=== PATIENT | female | born 1965 | race Caucasian/White ===

== ENCOUNTER 2017-05-24 10:15 | Emergency (ER) | payer OTHER, SELFPAY ==
[2017-05-24 10:16] VITALS: BP 126/75; PULSE 73; RESP 18; TEMP 36.9; O2SAT 97; BMI 28.7
--- NOTE | 2017-05-24 10:41 | RAD_ITS ---
STUDY: X-RAY CHEST REASON FOR EXAM: Female, 51 years old. Cough and chest congestion. TECHNIQUE: PA and lateral views of the chest. COMPARISON: None. FINDINGS: Focal lingular infiltrate. Hyperinflation. There is no demonstrated pleural abnormality. Normal size heart. Normal mediastinum and refugio. Normal visualized pulmonary arteries. Normal visualized aortic arch and descending thoracic aorta. There is demineralization of the osseous structures. Normal visualized ribs, clavicles, and shoulders. The patient is status post cholecystectomy. RAD/Chest PA and Lateral IMPRESSION: Focal lingular infiltrate. Electronically Signed: Okmar Chowdary MD at 11:08 EST Tel [phone], Service support ,
--- NOTE | 2017-05-24 11:13 | ED.VISSUMM ---
- ER Visit Summary Date of Service: 05/24/17 Chief Complaint: Respiratory symptoms that started 2-3 weeks ago History of Present Illness: The patient is a 51 F smoker 1 pack per day for 20+ years presents with productive cough of green colored sputum associated with nasal congestion and subjective fever with upper extremity achiness for 1 week. Patient initially complained of nasal congestion, rhinorrhea and postnasal drainage 2-3 weeks ago with a nonproductive cough. He denies rash. She denies headache, visual, ocular or auditory symptoms. She does complain of nausea without vomiting diarrhea. She denies dysuria, frequency, urgency hematuria. Please read written note for complete detail. Physical Examination: Are unremarkable. She is not febrile or hypoxic. Head is atraumatic normocephalic. Pupils are equal round reactive. Extraocular muscles are intact. TMs are pearly white with landmarks noted. Nares patent with no drainage. Posterior pharynx without erythema or exudate. Uvula is midline. There is no dysphonia or dysphasia. Trachea is midline. There is no stridor with auscultation of the neck. Heart is regular without murmur, gallop or rub. S1 and S2 are normal. Lungs are clear to auscultation with good movement of air bilaterally. There is no asymmetry, swelling, discoloration, leg vein distention, palpable cords or tenderness along the distribution of the deep venous system. Neuro exam is nonfocal Test Results: Two-view chest x-ray reveals a lingular infiltrate. Since patient does not have any sirs criteria blood work was not obtained. Emergency Department Course and Treatment: Chest x-ray is obtained. No blood work was obtained since she does not have any service criteria. Treatment Plan: She is not allergic to any antibiotics she was placed on doxycycline 100 mg twice daily. This will cover both typical and atypical organisms and not associated with tendon problems especially since she is middle-aged and heavy set with a BMI of 28.7. Disposition: Discharge to home with prescription for doxycycline 100 mg twice daily ?14 days. Impression: Newly acquired pneumonia, lingula, initial encounter This note was generated with [employer] dictation software. It may contain incorrect words, spelling, and punctuation that were not noted in review of the chart prior to signing ED Disposition - Plan for ED Patient: Disposition: Home or Assisted Living Chief Complaint: Cough Instructions: ED Pneumonia Adult Prescriptions: Doxycycline [Vibramycin] 100 mg PO BID #14 cap Referrals: Care Physician,No Primary [Primary Care Provider] - Maryann Lee DO [STAFF PHYSICIAN] - 3-5 Days Additional Instructions: It is in your best interest to stop smoking. Your prescription was electronically transmitted to [facility] the pharmacy you designated as your pharmacy of choice.
[2017-05-24] MEDS: Doxycycline 100 MG CAPSULE PO (11:33)
[2017-05-24 11:35] VITALS: BP 133/87; PULSE 65; RESP 16; O2SAT 97
== END 2017-05-24 11:38 | disposition home or self-care (01) ==
PROVIDERS: Emergency Provider Emergency Medicine
DX: J18.9 Pneumonia, unspecified organism (principal); Z72.0 Tobacco use
CPT/HCPCS: 71046; 99283

== ENCOUNTER 2017-06-05 06:50 | Emergency (ER) | payer OTHER, SELFPAY ==
[2017-06-05 06:50] VITALS: BP 128/78; PULSE 72; RESP 16; TEMP 36.8; O2SAT 99; BMI 29.3
[2017-06-05 06:58] VITALS: O2SAT 97
--- NOTE | 2017-06-05 07:05 | EKG12_ITS ---
Test Reason : COUGH Blood Pressure : / mmHG Vent. Rate : 061 BPM Atrial Rate : 061 BPM P-R Int : 152 ms QRS Dur : 086 ms QT Int : 430 ms P-R-T Axes : 063 050 045 degrees QTc Int : 432 ms Normal sinus rhythm Normal ECG Confirmed by VIRGIE CRUMP, ANNALISA ([id number]), deputy editor in chief ELVER GLASS ([id number]) on 06/07/2017 1:11:41 PM Referred By: ALEXA Confirmed By:ANNALISA GARVIN MD
--- NOTE | 2017-06-05 07:05 | RAD_ITS ---
STUDY: X-RAY CHEST REASON FOR EXAM: Female, 51 years old. Cough. Recent antibiotic treatment for pneumonia. TECHNIQUE: PA and lateral views of the chest. COMPARISON: Comparison is made with prior study dated May 24, 2018. FINDINGS: Hyperinflation. The previously seen lingular infiltrate has improved. Residual changes persist. There is no demonstrated pleural abnormality. Normal size heart. Normal mediastinum and refugio. Normal visualized pulmonary arteries. Normal visualized aortic arch and descending thoracic aorta. There is demineralization of the osseous structures. Normal visualized ribs, clavicles, and shoulders. Surgical clips are seen in the right upper quadrant most likely secondary to prior cholecystectomy. RAD/Chest PA and Lateral IMPRESSION: Mild residual lingular infiltrate. Electronically Signed: Omkar Chowdary MD at 9:00 EST Tel [phone], Service support ,
--- NOTE | 2017-06-05 07:16 | ED.VISSUMM ---
- ER Visit Summary Date of Service: 06/05/17 Chief Complaint: Cough History of Present Illness: The patient is a 51 F with a cough for the past 2 weeks. She was seen in the ER on May 24 and diagnosed with pneumonia. She was treated with doxycycline and has completed her antibiotics. Patient states she still has cough. She complains of having no energy. She reports feeling warm and having chills, but has not measured her fever. She states her cough is dry. She does occasionally feel that she is wheezing. She is a smoker. Physical Examination: Vital signs are unremarkable. Head and neck examination is unremarkable. Heart is regular rate and rhythm. Lung sounds are clear with good air movement. I do not appreciate any wheezing. Abdomen is soft nontender. Extremity examination is unremarkable with strong distal pulses. Test Results: CBC and chemistry studies are unremarkable. EKG is sinus at 61 with no sign of acute ischemia. Two-view chest x-ray reveals mild residual lingular infiltrate. Emergency Department Course and Treatment: Patient received Tessalon Perles and Tylenol here. Test results were discussed with her. Because she is still having subjective fevers and chills, she will be treated with Levaquin. First dose will be given here and she will be referred to establish local primary care. Treatment Plan: [] Disposition: Discharge Impression: Lingular pneumonia This note was generated with [employer] dictation software. It may contain incorrect words, spelling, and punctuation that were not noted in review of the chart prior to signing ED Disposition - Plan for ED Patient: Chief Complaint: Cough Referrals: Care Physician,No Primary [Primary Care Provider] -
[2017-06-05] MEDS: Benzonatate 100 MG Capsule 200 MG PO (08:16)
[2017-06-05 09:31] LABS: Absolute Lymphocyte Count 2.27 X10^3/ul (0.83-4.51); Absolute Neutrophil Count 3.8 X10^3/uL (2.0-7.7); Basophil# 0.02 X10^3/uL; Basophil% 0.3 % (0-1); Eosinophil# 0.21 X10^3/uL; Hematocrit 41.7 % (37-47); Lymphocyte # 2.27 X10^3/ul (4.0); Lymphocyte % 32.8 % (19-41); Mean Corp Hgb Conc 33.6 g/gl (32-36); Mean Corpuscular Hgb 29.4 pg (27.0-32.0); Mean Corpuscular Volume 87.6 fL (81-99); Mean Platelet Vol. 10.4 fl (6.2-12.0); Monocyte# 0.65 X10^3/uL; Monocyte% 9.4 % (0-10); Neutrophil # 3.76 X10^3/uL (2.7-7.7); Neutrophil % 54.4 % (47-70); Platelet Count 221 K/mm3 (150-450); RBC Distribution Width CV 13.5 % (11.6-14.6); RBC Distribution Width SD 43.1 fl (35.1-43.9); Red Blood Count 4.76 M/mm3 (4.2-5.4); White Blood Count 6.9 K/mm3 (4.4-11.0)
[2017-06-05 09:34] LABS: POSITIVE COUNT NO; POSITIVE DIFFERENTIAL NO; POSITIVE MORPHOLOGY NO
[2017-06-05 09:51] LABS: Anion Gap 9 (5-15); BUN 17 mg/dL (7-18); BUN/Creat Ratio 18.1 RATIO (10-20); Calcium,Total 8.7 mg/dL (8.5-10.1); Chloride 108 mmol/L (98-107); Creatinine, Serum 0.94 mg/dL (0.55-1.02); EST Glomerular Filtration Rate 66 mL/min (>60); Est Glom Filt Rate - Afr Amer 80 mL/min (>60); Estimated Creatinine Clearance 52.23 ml/min; Glucose 88 mg/dL (74-106); Potassium 3.5 mmol/L (3.5-5.1); Sodium Level 140 mmol/L (136-145)
--- NOTE | 2017-06-05 09:58 | ED.DEP ---
ED Disposition - Plan for ED Patient: Disposition: Home or Assisted Living Chief Complaint: Cough Instructions: ED Pneumonia Adult Prescriptions: Benzonatate [Tessalon Perle] 200 mg PO TID PRN PRN #20 capsule PRN Reason: Cough Levofloxacin [Levaquin] 750 mg PO DAILY #4 tablet Referrals: Laure Mathews MD [STAFF PHYSICIAN] - 1-2 Weeks
[2017-06-05 10:00] VITALS: BP 138/74; PULSE 71; RESP 16; O2SAT 96
[2017-06-05] MEDS: levoFLOXacin 750 MG Tablet PO (10:04)
[2017-06-05] MEDS: Acetaminophen 500 MG Tablet 1000 MG PO (10:04)
[2017-06-05 10:08] VITALS: BP 138/77; PULSE 61; RESP 15; O2SAT 96
== END 2017-06-05 10:08 | disposition home or self-care (01) ==
PROVIDERS: Emergency Provider Emergency Medicine
DX: J18.9 Pneumonia, unspecified organism (principal); F17.200 Nicotine dependence, unspecified, uncomplicated; Z79.2 Long term (current) use of antibiotics
CPT/HCPCS: 36415; 71046; 80048; 85025; 93005; 99285; A4216

== ENCOUNTER 2017-10-05 23:16 | Emergency (ER) | payer SELFPAY ==
--- NOTE | 2017-10-05 23:16 | EKG12_ITS ---
Test Reason : CP/LOW BP Blood Pressure : / mmHG Vent. Rate : 067 BPM Atrial Rate : 067 BPM P-R Int : 160 ms QRS Dur : 090 ms QT Int : 456 ms P-R-T Axes : 080 068 005 degrees QTc Int : 481 ms Normal sinus rhythm Prolonged QT Abnormal ECG Confirmed by CAMERON CRUMP, SETH ([id number]), editor publications JUAN KOENIG ([id number]) on 10/08/2017 10:15:45 AM Referred By: DR REEVES Confirmed By:SETH BARNES MD
[2017-10-05 23:17] VITALS: BP 68/32; PULSE 56; RESP 15; TEMP 36.4; BMI 26.6
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
[2017-10-06 00:05] VITALS: BP 91/57; PULSE 81; RESP 16; O2SAT 98
[2017-10-06 00:16] LABS: Partial Thromboplast Time 23.6 Seconds (24.1-36.2)
[2017-10-06] MEDS: 0.9% Normal Saline 1,000 ML 1000 ML IV (00:19)
[2017-10-06] MEDS: fentaNYL 100 MCG/2 ML Ampul 50 MCG IV (00:19)
[2017-10-06 00:20] VITALS: BP 99/56
[2017-10-06 00:22] LABS: AST(SGOT) 17 U/L (15-37); Alanine Aminotransfer ALT/SGPT 19 U/L (13-56); Albumin, Serum 3.6 g/dL (3.2-5.0); Alkaline Phosphatase 50 U/L (45-117); Anion Gap 7 (5-15); BUN 16 mg/dL (7-18); BUN/Creat Ratio 17.2 RATIO (10-20); Bilirubin, Direct 0.11 mg/dL (0.00-0.30); Calcium,Total 8.7 mg/dL (8.5-10.1); Chloride 109 mmol/L (98-107); Creatinine, Serum 0.93 mg/dL (0.55-1.02); EST Glomerular Filtration Rate 67 mL/min (>60); Est Glom Filt Rate - Afr Amer 81 mL/min (>60); Estimated Creatinine Clearance 62.95 ml/min; Glucose 157 mg/dL (74-106); Lipase 154 U/L (73-393); Potassium 3.4 mmol/L (3.5-5.1); Protein, Total 6.6 g/dL (6.4-8.2); Sodium Level 140 mmol/L (136-145)
[2017-10-06 00:24] LABS: Absolute Lymphocyte Count 2.04 X10^3/ul (0.83-4.51); Absolute Neutrophil Count 5.2 X10^3/uL (2.0-7.7); Basophil# 0.02 X10^3/uL; Basophil% 0.2 % (0-1); Eosinophil# 0.11 X10^3/uL; Eosinophils% 1.4 % (0-5); Hematocrit 38.9 % (37-47); Hemoglobin 13.4 g/dl (12.0-15.0); Lymphocyte # 2.04 X10^3/ul (4.0); Lymphocyte % 25.4 % (19-41); Mean Corp Hgb Conc 34.4 g/gl (32-36); Mean Corpuscular Hgb 30.4 pg (27.0-32.0); Mean Corpuscular Volume 88.2 fL (81-99); Mean Platelet Vol. 10.8 fl (6.2-12.0); Monocyte# 0.66 X10^3/uL; Monocyte% 8.2 % (0-10); Neutrophil # 5.19 X10^3/uL (2.7-7.7); Neutrophil % 64.7 % (47-70); POSITIVE COUNT NO; POSITIVE DIFFERENTIAL NO; POSITIVE MORPHOLOGY NO; Platelet Count 206 K/mm3 (150-450); RBC Distribution Width CV 13.6 % (11.6-14.6); RBC Distribution Width SD 43.2 fl (35.1-43.9); Red Blood Count 4.41 M/mm3 (4.2-5.4)
[2017-10-06 00:25] VITALS: BP 101/76
[2017-10-06 00:32] VITALS: BP 104/73; PULSE 73; RESP 19; O2SAT 97
--- NOTE | 2017-10-06 00:52 | NURSING ---
pt was in triage and the nurse had 2 low BPS and stated that she looked pale and diaphoretic. pt was immediately brought back and escorted back by 2 nurses. the pt was put on the monitor and had BP recycled. the pt still had low BP's. Dr. Martinez concerned with internal bleeding. Difficult IV start, finally a 20 g was established, with fluid bolus running. and got the pt stable to head quickly to cat scan. DR. Martinez came over to see the cat scan as well. there was a spleen injury and [facility] was called. inserted catheter, got urine but another staff member accidently threw away the pee and the pt had already left for the helipad. a c-collar was also applied.
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
[2017-10-06 00:55] VITALS: O2SAT 99
[2017-10-06 00:56] VITALS: BP 104/73; PULSE 83; RESP 16; O2SAT 97
== END 2017-10-06 01:16 | disposition short-term general hospital (02) ==
LOC: ED 10-06 00:22
PROVIDERS: Emergency Provider Emergency Medicine
DX: I95.9 Hypotension, unspecified (principal); S36.00XA Unspecified injury of spleen, initial encounter; F17.200 Nicotine dependence, unspecified, uncomplicated; V00.831A Fall from motorized mobility scooter, initial encounter; Y93.I9 Activity, other involving external motion; Y92.89 Other specified places as the place of occurrence of the external cause; Y99.8 Other external cause status
CPT/HCPCS: 51702; 71260; 74177; 80048; 80076; 83605; 83690; 85025; 85610; 85730; 93005; 96374; 99285; J7030; Q9967; A4216

== ENCOUNTER 2017-10-07 19:46 | Emergency (ER) | payer SELFPAY ==
[2017-10-07 19:48] VITALS: BP 144/88; PULSE 64; RESP 20; TEMP 36.7; O2SAT 98; BMI 26.4
--- NOTE | 2017-10-07 20:27 | EKG12_ITS ---
Test Reason : CP,SOB Blood Pressure : / mmHG Vent. Rate : 061 BPM Atrial Rate : 061 BPM P-R Int : 148 ms QRS Dur : 086 ms QT Int : 424 ms P-R-T Axes : 070 061 062 degrees QTc Int : 426 ms Normal sinus rhythm with sinus arrhythmia Normal ECG Confirmed by CAMERON CRUMP, SETH ([id number]), communications editor JUAN KOENIG ([id number]) on 10/10/2017 4:21:57 PM Referred By: TYLER Confirmed By:SETH BARNES MD
[2017-10-07] MEDS: Ipratropium/Albuterol Sulfate 3 ML AMPUL.NEB INHALATION (20:42)
[2017-10-07] MEDS: Albuterol 2.5 MG/3 ML VIAL.NEB. INHALATION ×2 (20:42)
[2017-10-07 20:43] VITALS: PULSE 59; RESP 20
[2017-10-07] MEDS: HYDROcodone Bitartrate/Apap 5/325 Tablet PO (20:47)
[2017-10-07 20:48] LABS: Absolute Neutrophil Count 4.3 X10^3/uL (2.0-7.7); Basophil# 0.02 X10^3/uL; Basophil% 0.3 % (0-1); Eosinophil# 0.17 X10^3/uL; Eosinophils% 2.3 % (0-5); Hematocrit 41.4 % (37-47); Hemoglobin 14.1 g/dl (12.0-15.0); Lymphocyte % 28.5 % (19-41); Mean Corp Hgb Conc 34.1 g/gl (32-36); Mean Corpuscular Hgb 30.2 pg (27.0-32.0); Mean Corpuscular Volume 88.7 fL (81-99); Monocyte# 0.83 X10^3/uL; Monocyte% 11.2 % (0-10); Neutrophil # 4.25 X10^3/uL (2.7-7.7); Neutrophil % 57.6 % (47-70); POSITIVE COUNT NO; POSITIVE DIFFERENTIAL NO; POSITIVE MORPHOLOGY NO; Platelet Count 223 K/mm3 (150-450); RBC Distribution Width CV 14.3 % (11.6-14.6); RBC Distribution Width SD 45.5 fl (35.1-43.9); Red Blood Count 4.67 M/mm3 (4.2-5.4); White Blood Count 7.4 K/mm3 (4.4-11.0)
[2017-10-07 20:53] VITALS: BP 106/74; PULSE 72; RESP 22; O2SAT 97
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
[2017-10-07 21:00] VITALS: PULSE 77; RESP 16
[2017-10-07 21:00] LABS: AST(SGOT) 20 U/L (15-37); Alanine Aminotransfer ALT/SGPT 17 U/L (13-56); Albumin, Serum 3.6 g/dL (3.2-5.0); Alkaline Phosphatase 55 U/L (45-117); Anion Gap 6 (5-15); BUN 16 mg/dL (7-18); BUN/Creat Ratio 17.3 RATIO (10-20); Calcium,Total 8.8 mg/dL (8.5-10.1); Chloride 110 mmol/L (98-107); Creatinine, Serum 0.92 mg/dL (0.55-1.02); EST Glomerular Filtration Rate 67 mL/min (>60); Est Glom Filt Rate - Afr Amer 82 mL/min (>60); Estimated Creatinine Clearance 53.36 ml/min; Globulin 3.5 g/dL (2.2-4.2); Glucose 108 mg/dL (74-106); Potassium 4.1 mmol/L (3.5-5.1); Protein, Total 7.1 g/dL (6.4-8.2); Sodium Level 142 mmol/L (136-145)
[2017-10-07 21:56] VITALS: BP 123/63; PULSE 83; RESP 25; O2SAT 94
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
[2017-10-07 22:50] VITALS: BP 113/43; PULSE 81; RESP 24; O2SAT 97
--- NOTE | 2017-10-07 22:50 | ED.RN ---
THIS NURSE REVIEWED D/C INSTRUCTIONS WITH PT. PT VERBALIZED UNDERSTANDING OF INSTRUCTIONS. IV D/C. IV CATHETER INTACT. PT TOLERATED WELL. PT DENIES FURTHER NEEDS OR QUESTIONS AT THIS TIME. PT AMBULATES FROM ROOM ON OWN WITHOUT ASSISTANCE FROM STAFF
== END 2017-10-07 22:53 | disposition home or self-care (01) ==
PROVIDERS: Emergency Provider Emergency Medicine
DX: R07.89 Other chest pain (principal); J44.9 Chronic obstructive pulmonary disease, unspecified; F17.200 Nicotine dependence, unspecified, uncomplicated
CPT/HCPCS: 71046; 80053; 85025; 93005; 94640; 99285; A4216

== ENCOUNTER 2017-10-08 06:19 | Emergency (ER) | payer SELFPAY ==
[2017-10-08 06:20] VITALS: BP 132/80; PULSE 63; RESP 22; TEMP 36.4; O2SAT 97; BMI 32.6
--- NOTE | 2017-10-08 06:44 | RAD_ITS ---
STUDY: X-RAY CHEST REASON FOR EXAM: Female, 51 years old. Shortness of breath. TECHNIQUE: PA and lateral views of the chest. COMPARISON: Comparison is made with prior study dated October 07, 2017. FINDINGS: The lungs are clear and expanded. There is no demonstrated pleural abnormality. Normal size heart. Normal mediastinum and refugio. Normal visualized pulmonary arteries. Normal visualized aortic arch and descending thoracic aorta. There is demineralization of the osseous structures. Normal visualized ribs, clavicles, and shoulders. Surgical clips are seen in the right upper quadrant ache with prior cholecystectomy. RAD/Chest PA and Lateral IMPRESSION: No acute abnormality is seen. Electronically Signed: Omkar Chowdary MD at 8:38 EDT Tel [phone], Service support ,
[2017-10-08] MEDS: Albuterol 2.5 MG/3 ML VIAL.NEB. INHALATION ×3 (07:16)
[2017-10-08] MEDS: Ipratropium/Albuterol Sulfate 3 ML AMPUL.NEB INHALATION (07:16)
[2017-10-08 07:17] VITALS: PULSE 70; RESP 20
[2017-10-08 07:25] VITALS: PULSE 68; RESP 18; O2SAT 98
[2017-10-08] MEDS: morphine 8 MG/ML Syringe 6 MG SC (07:26)
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
--- NOTE | 2017-10-08 07:32 | ED.DEP ---
ED Disposition - Plan for ED Patient: Chief Complaint: Shortness of Breath Instructions: ED Contusion Chest Wall, ED Wheezing Prescriptions: Albuterol IH (ProAir) [Proair Hfa] 1 - 2 puff INHALATION Q4H PRN PRN #1 inhaler PRN Reason: Wheezing Referrals: Newton Gallagher [[facility]] - 3-5 Days
[2017-10-08 09:58] VITALS: BP 117/70; PULSE 76; RESP 16; TEMP 36.6; O2SAT 97
--- NOTE | 2017-10-09 12:00 | CM.ED ---
ED CALLBACK: Follow-up call placed to patient. No answer. Voicemail left with return contact information.
== END 2017-10-08 10:00 | disposition home or self-care (01) ==
PROVIDERS: Emergency Provider Emergency Medicine
DX: J98.01 Acute bronchospasm (principal); R07.89 Other chest pain; F17.200 Nicotine dependence, unspecified, uncomplicated
CPT/HCPCS: 71046; 94640; 96372; 99282

== ENCOUNTER 2018-01-08 19:58 | Emergency (ER) | payer SELFPAY ==
[2018-01-08 19:59] VITALS: BP 126/73; PULSE 66; RESP 18; TEMP 36.9; O2SAT 99; BMI 26.0
--- NOTE | 2018-01-08 21:49 | ED.DCSUM_ITS ---
- ER Visit Summary Date of Service: 01/08/18 Chief Complaint: Cold symptoms History of Present Illness: The patient is a 52 F who presents for almost 2 weeks of cold symptoms. Patient had sinus congestion and rhinorrhea at onset and now continues to have a cough and associated shortness of breath. Cough is dry and frequent. She is feeling fatigued and weak. She has pain between her shoulder blades that is tender with movement that she thinks is from coughing. She denies nausea, vomiting, diarrhea, fever, sore throat or chest pain. She is a smoker. Denies history of COPD. Denies any medical problems. Physical Examination: Vital signs: afebrile, hemodynamically stable, no hypoxia on room air General: well nourished, well developed, in no distress Skin: warm, dry, no rash, no pallor HEENT: normocephalic and atraumatic; PERRL, EOMI, moist mucous membranes no oropharyngeal lesions or exudates, no posterior erythema, voice is nasal and consistent with congestion Cardiovascular: regular rate and rhythm without murmurs, no peripheral edema, 2+ pulses all distal extremities Respiratory: No increased work of breathing, lungs show mild wheezing consistent with smoker's lung, frequent hacking cough Abdominal: Abdomen is soft, nontender with normoactive bowel sounds, no guarding or rebound, no masses MSK: Moves all extremities, no deformities, normal strength, tenderness to the musculature of the upper shoulders Neuro: Awake and alert, oriented ?4. No facial droop, sensation and motor function intact and symmetric Test Results: Clinical Impression(s) from Imaging Studies Chest X-Ray 01/08/18 22:10 IMPRESSION: Degenerative changes, as described above. No demonstrated acute cardiopulmonary process. Electronically Signed: Angel Stone MD at 22:38 EDT , Service support , Medications Given Discontinued Medications Albuterol/Ipratropium (Duoneb) 3 ml INHALATION X1 ONE Stop: 01/08/18 21:46 Last Admin: 01/08/18 21:54 Dose: 3 ml Benzonatate (Tessalon Perle) 200 mg PO X1 ONE Stop: 01/08/18 21:46 Last Admin: 09/26/18 22:15 Dose: 200 mg Emergency Department Course and Treatment: Patient was given a breathing treatment due to the mild diffuse wheezing. She was given a dose of Tessalon for her cough. Chest x-ray was performed and showed no pneumonia but was consistent with early COPD, for which patient does not currently have a diagnosis of. On reevaluation patient was feeling better after the breathing treatment. She was given a prescription for an albuterol inhaler and placed on a prednisone burst. Because of the concern for undiagnosed COPD and her 2 weeks of URI symptoms, she was started on azithromycin. She was given a prescription for Tessalon. She is to follow-up with a primary care doctor for reevaluation and to discuss possible COPD diagnosis. Patient was discharged home in improved condition. Treatment Plan: [] Disposition: [] Impression: Acute bronchitis, COPD This note was generated with [employer] dictation software. It may contain incorrect words, spelling, and punctuation that were not noted in review of the chart prior to signing ED Disposition - Plan for ED Patient: Disposition: Home or Assisted Living Chief Complaint: Cold Sx Instructions: ED Bronchitis Asthmatic, ED COPD Flare Prescriptions: RX: Albuterol Inhaler [Ventolin Hfa] 2 puff INHALATION Q4H PRN PRN #1 inhaler PRN Reason: Wheezing RX: Azithromycin [Zithromax Z-Lang] 250 mg PO UD #1 box Benzonatate [Tessalon Perle] 100 mg PO TID PRN PRN #20 cap PRN Reason: Cough RX: Prednisone [Deltasone] 40 mg PO DAILY #10 tab Referrals: Ez Gotti DO [STAFF PHYSICIAN] - 3-5 Days Care Physician,No Primary [Primary Care Provider] - Additional Instructions: Take all the medications as prescribed. Use the albuterol as needed to help with your breathing and the Tessalon Perles as needed for cough. Follow up with the doctor on this paperwork or with the family doctor of your choice to establish care and for further workup of concern for COPD. If you have any worsening of your condition or any new concerning symptoms, please return immediately to the emergency department for another evaluation.
[2018-01-08 21:53] VITALS: PULSE 70; RESP 18
[2018-01-08] MEDS: Ipratropium/Albuterol Sulfate 3 ML AMPUL.NEB INHALATION (21:54)
--- NOTE | 2018-01-08 22:10 | RAD_ITS ---
STUDY: X-RAY CHEST REASON FOR EXAM: Female, 52 years old. Cough. TECHNIQUE: PA and lateral views of the chest. COMPARISON: October 08, 2017. FINDINGS: There is hyperinflation of the lungs consistent with chronic obstructive lung disease (COPD). There is no demonstrated pleural abnormality. Normal size heart. Normal mediastinum and refugio. Normal visualized pulmonary arteries. Normal visualized aortic arch and descending thoracic aorta. There is a dextroscoliosis of the thoracic spine. Normal visualized ribs, clavicles, and shoulders. There is no demonstrated abnormality of the visualized soft tissue structures of the upper abdomen. RAD/Chest PA and Lateral IMPRESSION: Degenerative changes, as described above. No demonstrated acute cardiopulmonary process. Electronically Signed: Angel Stone MD at 22:38 EDT , Service support ,
[2018-01-08] MEDS: Benzonatate 100 MG Capsule 200 MG PO (22:15)
--- NOTE | 2018-01-08 23:27 | DCINST.ED_ITS ---
ED Disposition - Plan for ED Patient: Chief Complaint: Cold Sx Instructions: ED Bronchitis Asthmatic, ED COPD Flare Prescriptions: Albuterol Inhaler [Ventolin Hfa] 2 puff INHALATION Q4H PRN PRN #1 inhaler PRN Reason: Wheezing Azithromycin [Zithromax Z-Lang] 250 mg PO UD #1 box Benzonatate [Tessalon Perle] 100 mg PO TID PRN PRN #20 cap PRN Reason: Cough Prednisone [Deltasone] 40 mg PO DAILY #10 tab Referrals: Care Physician,No Primary [Primary Care Provider] - Ez Gotti DO [STAFF PHYSICIAN] - 3-5 Days Additional Instructions: Take all the medications as prescribed. Use the albuterol as needed to help wit h your breathing and the Tessalon Perles as needed for cough. Follow up with the doctor on this paperwork or with the family doctor of your choice to establish care and for further workup of concern for COPD. If you have any worsening of your condition or any new concerning symptoms, please return immediately to the emergency department for another evaluation.
[2018-01-08 23:33] VITALS: BP 142/81; PULSE 63; RESP 18; O2SAT 95
--- NOTE | 2018-01-08 23:33 | ED.RN ---
REVIEWED D/C INSTRUCTIONS, FOLLOW UP CARE, PRESCRIPTIONS, AND S/S THAT WOULD WARRANT A RETURN TO THE ED WITH PT. PT VERBALIZED AN UNDERSTANDING AND DENIES FURTHER QUESTIONS FOR THIS RN. PT SKIN P/W/D, RESP EVEN AND UNLABORED, PT A&O X 3, NO DISTRESS NOTED. PT AMBULATED OUT OF ED, GAIT STEADY.
== END 2018-01-08 23:34 | disposition home or self-care (01) ==
PROVIDERS: Emergency Provider Emergency Medicine
DX: J44.9 Chronic obstructive pulmonary disease, unspecified (principal); J20.9 Acute bronchitis, unspecified; Z72.0 Tobacco use
CPT/HCPCS: 71046; 94640; 99283

== ENCOUNTER 2018-04-13 03:07 | Emergency (ER) | payer SELFPAY ==
[2018-04-13 03:07] VITALS: BMI 28.7
[2018-04-13 03:08] VITALS: BP 125/79; PULSE 66; RESP 18; TEMP 36.7; O2SAT 98; BMI 30.7
--- NOTE | 2018-04-13 03:25 | ED.VISSUMM ---
- ER Visit Summary Date of Service: 04/13/18 Chief Complaint: [] Cough and congestion and red eyes History of Present Illness: The patient is a 52 F she stated she has had upper respiratory symptoms for last 2-3 weeks. She has had a nonproductive cough runny nose and sore throat. Positive sick contacts. No fevers or chills. Positive smoker. Current severity is mild. Gradual onset. Worsened by swallowing. She has had no headache or sinus pressure. No nausea or vomiting. No shortness of breath. She has had this in the past with upper respiratory infections. She noticed since yesterday her eyes are red and draining clear fluid ROS General: Denies fever, chills, sweats Eyes: Denies visual changes, blurred vision, double vision. See HPI ENT: See HPI Cardiovascular: Denies chest pain, palpitations, heart racing Respiratory: Denies dyspnea, sputum, dyspnea on exertion, orthopnea,PND GI: Denies abdominal pain, nausea, vomiting, diarrhea, constipation, melena : Denies dysuria, hematuria, frequency Musculoskeletal: Denies myalgias, arthralgias, neck pain, back pain Skin: Denies rash, abscess, abrasions Neuro: Denies headache, weakness, paresthesia Psych: Denies depression, anxiety Endo: Denies polyuria, polydipsia, polyphagia Heme: Denies easy bruising, easy bleeding, lymphadenopathy Allergy: Denies hives, swelling Physical Examination: [] Vital signs reviewed General: Well-nourished well-developed Head: Normocephalic atraumatic Eyes: Pupils equal round and reactive to light extraocular movements intact. Mild bilateral conjunctivitis ENT: TMs clear no hemotympanum no trauma Neck: Nontender full range of motion Cardiovascular: Regular rate rhythm no murmurs normal S1-S2 Respiratory: No distress clear to auscultation bilaterally chest nontender Abdomen: Soft nontender nondistended normal bowel sounds no masses Back: Nontender no CVA tenderness Extremities: Nontender active range of motion ?4 extremities no trauma Skin: Normal color no trauma Neuro alert oriented cranial nerves II through XII intact normal strength sensation reflexes Test Results: [] Emergency Department Course and Treatment: [] Given antibiotic eyedrops. At this time she is reassured and has an upper respiratory infection that has run its course. Normal physical exam. Afebrile. Educated on what [id number] should take for her cold symptoms Treatment Plan: [] Disposition: [] Impression: [] Upper respiratory infection Bilateral conjunctivitis This note was generated with [employer] dictation software. It may contain incorrect words, spelling, and punctuation that were not noted in review of the chart prior to signing ED Disposition - Plan for ED Patient: Chief Complaint: Cold Sx Referrals: Care Physician,No Primary [Primary Care Provider] -
--- NOTE | 2018-04-13 03:27 | ED.DEP ---
ED Disposition - Plan for ED Patient: Disposition: Home or Assisted Living Chief Complaint: Cold Sx Instructions: ED Upper Resp Infec No Abx Tx Referrals: Care Physician,No Primary [Primary Care Provider] - Akila Mendenhall DO [NON-STAFF] -
[2018-04-13] MEDS: Sulfacetamide Sodium 15ML OPTH.BTL 1 DRP OP (03:35)
[2018-04-13 03:39] VITALS: RESP 18
== END 2018-04-13 03:40 | disposition home or self-care (01) ==
PROVIDERS: Emergency Provider Emergency Medicine
DX: H10.9 Unspecified conjunctivitis (principal); J06.9 Acute upper respiratory infection, unspecified; F17.200 Nicotine dependence, unspecified, uncomplicated
CPT/HCPCS: 99282

== ENCOUNTER 2018-04-22 08:38 | Emergency (ER) | payer SELFPAY ==
[2018-04-22 08:38] VITALS: BP 140/92; PULSE 69; RESP 18; TEMP 36.1; O2SAT 99; BMI 27.3
--- NOTE | 2018-04-22 08:51 | ED.VISSUMM ---
- ER Visit Summary Date of Service: 04/22/18 Chief Complaint: Bilateral eye drainage History of Present Illness: The patient is a 52 F dyspnea past medical history. She is a smoker. Says about 2 weeks ago she got a URI and along the left bilateral eye drainage primarily watering and somewhat like a discharge with crusting over. She started using old eyedrops that she had that were sulfa based and said her eyes have not gotten any better may be even worse with redness. She denies any visual change. She does not wear contacts and she occasionally wears reading glasses. She denies any foreign body sensation or trauma. Physical Examination: Well-appearing middle-age female. Vital signs are stable overall. HEENT exam pupils are reactive light. Her motions are intact. Her eyes are watery. There is redness from irritation both are injected. Upper and lower lids are unremarkable. There is minimal discharge bilaterally. There is no periorbital swelling or cellulitis. There is no preauricular lymphadenopathy. Posterior pharynx normal. Smell of smoke on her breath. Neck nontender no lymphadenopathy. Lungs clear to auscultation bilaterally. Heart regular rhythm no murmur. Abdomen soft nontender. Moving all 4 extremities. Calves nontender without edema or cords. Neurologically she is awake and alert with no focal motor deficits. Test Results: None Emergency Department Course and Treatment: Clinically I think the patient initially had a URI which started off her symptoms. But now that she has been using the sulfa drops for 1-1/2-2 weeks I think she had an allergic reaction to the sulfa drops. She knows to stop those. She knows to stop smoking. She will be started on bacitracin ophthalmic ointment for both eyes. Also cool compresses. Treatment Plan: Stop the sulfa drops. Follow-up with ophthalmology as needed. Bacitracin ophthalmic ointment twice daily. Disposition: Discharge Impression: Bilateral conjunctivitis secondary to allergic reaction to sulfa-based eyedrops Status post URI This note was generated with [employer] dictation software. It may contain incorrect words, spelling, and punctuation that were not noted in review of the chart prior to signing ED Disposition - Plan for ED Patient: Chief Complaint: Eye Problem Referrals: Care Physician,No Primary [Primary Care Provider] -
--- NOTE | 2018-04-22 08:54 | ED.DCSUM_ITS ---
- ER Visit Summary Date of Service: 04/22/18 Chief Complaint: Bilateral eye drainage History of Present Illness: The patient is a 52 F dyspnea past medical history. She is a smoker. Says about 2 weeks ago she got a URI and along the left bilateral eye drainage primarily watering and somewhat like a discharge with crusting over. She started using old eyedrops that she had that were sulfa based and said her eyes have not gotten any better may be even worse with redness. She denies any visual change. She does not wear contacts and she occasionally wears reading glasses. She denies any foreign body sensation or trauma. Physical Examination: Well-appearing middle-age female. Vital signs are stable overall. HEENT exam pupils are reactive light. Her motions are intact. Her eyes are watery. There is redness from irritation both are injected. Upper and lower lids are unremarkable. There is minimal discharge bilaterally. There is no periorbital swelling or cellulitis. There is no preauricular lymphadenopathy. Posterior pharynx normal. Smell of smoke on her breath. Neck nontender no lymphadenopathy. Lungs clear to auscultation bilaterally. Heart regular rhythm no murmur. Abdomen soft nontender. Moving all 4 extremities. Calves nontender without edema or cords. Neurologically she is awake and alert with no focal motor deficits. Test Results: None Emergency Department Course and Treatment: Clinically I think the patient initially had a URI which started off her symptoms. But now that she has been using the sulfa drops for 1-1/2-2 weeks I think she had an allergic reaction to the sulfa drops. She knows to stop those. She knows to stop smoking. She will be started on bacitracin ophthalmic ointment for both eyes. Also cool compresses. Treatment Plan: Stop the sulfa drops. Follow-up with ophthalmology as needed. Bacitracin ophthalmic ointment twice daily. Disposition: Discharge Impression: Bilateral conjunctivitis secondary to allergic reaction to sulfa- based eyedrops Status post URI This note was generated with [employer] dictation software. It may contain incorrect words, spelling, and punctuation that were not noted in review of the chart prior to signing ED Disposition - Plan for ED Patient: Chief Complaint: Eye Problem Referrals: Care Physician,No Primary [Primary Care Provider] -
--- NOTE | 2018-04-22 08:54 | ED.DEP ---
ED Disposition - Plan for ED Patient: Disposition: Home or Assisted Living Chief Complaint: Eye Problem Instructions: ED Allergic Conjunctivitis Referrals: Chetna Jacobs MD [STAFF PHYSICIAN] - 1 Week if not improving Additional Instructions: Stop the eyedrops that you are currently using. They a sulfa base and you are probably having allergic reaction to them. Bacitracin ophthalmic ointment to both eyes twice a day. Stop smoking. Follow-up with eye doctor if not improving.
== END 2018-04-22 09:20 | disposition home or self-care (01) ==
LOC: ED 09:01
PROVIDERS: Emergency Provider Emergency Medicine
DX: H10.213 Acute toxic conjunctivitis, bilateral (principal); T49.5X5A Adverse effect of ophthalmological drugs and preparations, initial encounter; F17.200 Nicotine dependence, unspecified, uncomplicated
CPT/HCPCS: 99282

== ENCOUNTER 2018-06-03 12:15 | Emergency (ER) | payer SELFPAY ==
[2018-06-03 12:15] VITALS: BP 121/76; PULSE 76; RESP 16; TEMP 36.9; O2SAT 98; BMI 30.1
--- NOTE | 2018-06-03 12:51 | RAD_ITS ---
STUDY: X-RAY CHEST REASON FOR EXAM: Female, 52 years old. One-week history of cough and weakness. TECHNIQUE: PA and lateral views of the chest. COMPARISON: Comparison is made with prior study dated January 08, 2018. FINDINGS: Hyperinflation. The lungs are clear and expanded. Scattered calcified granulomas. No acute abnormality is seen. There is no demonstrated pleural abnormality. Normal size heart. Normal mediastinum and refugio. Normal visualized pulmonary arteries. Normal visualized aortic arch and descending thoracic aorta. There are mild degenerative changes of the visualized thoracic spine. Normal visualized ribs, clavicles, and shoulders. Surgical clips are seen in the right upper quadrant most likely secondary to prior cholecystectomy. RAD/Chest PA and Lateral IMPRESSION: Hyperinflation. No acute abnormality is seen. Electronically Signed: Omkar Chowdary MD at 13:22 EST , Service support ,
--- NOTE | 2018-06-03 12:57 | ED.DCSUM_ITS ---
- ER Visit Summary Date of Service: 06/03/18 Chief Complaint: Cold symptoms History of Present Illness: The patient is a 52 F who presents for 1 week of gradually worsening cold symptoms. Patient states she has had sore throat, rhinorrhea, cough, chills and general malaise for 1 week. Over the last few days the symptoms have worsened, now with diffuse myalgias, worsening cough, generalized weakness and malaise, and bilateral eye redness and discomfort. Patient has been taking ibuprofen and [place] for symptoms. She denies any medical history or daily medications. She does use tobacco. Physical Examination: Vital signs: afebrile, hemodynamically stable, no hypoxia on room air General: well nourished, well developed, in no distress Skin: warm, dry, no rash, no pallor HEENT: normocephalic and atraumatic; PERRL, EOMI, diffuse conjunctival injection, eyes are watery, no exudative discharge, no pain with movement, no periorbital edema or erythema, moist mucous membranes no oropharyngeal lesions Cardiovascular: regular rate and rhythm without murmurs, no peripheral edema, 2+ pulses all distal extremities Respiratory: No increased work of breathing, lungs are clear to auscultation bilaterally, no rales, rhonchi or wheezing, frequent harsh moist cough Abdominal: Abdomen is soft, nontender with normoactive bowel sounds, no guarding or rebound, no masses MSK: Moves all extremities, no deformities, normal strength Neuro: Awake and alert, oriented ?4. No facial droop, sensation and motor function intact and symmetric Test Results: Microbiology Past 72 Hours 06/03/18 12:58 Mucosa - Nose Influenza Types A,B Direct FA (RIAZ) - Final Laboratory Results 06/03/18 13:18: POC Glucose 88 06/03/18 14:25: Urine Color Yellow, Urine Clarity Clear, Urine pH 5.0, Ur Specific Gordon 1.025, Urine Protein 30 H, Urine Glucose (UA) Normal, Urine Ketones 5 H, Urine Occult Blood 25 H, Urine Nitrite Negative, Urine Bilirubin 3 H, Urine Urobilinogen 4 H, Ur Leukocyte Esterase 25 H, Urine RBC 0-5 SEEN, Urine WBC 0-5 SEEN, Ur Squamous Epith Cells 5-10 SEEN, Calcium Oxalate Crystal 2+, Urine Bacteria 1+, Urine Mucus 0 SEEN Clinical Impression(s) from Imaging Studies Chest X-Ray 06/03/18 12:51 IMPRESSION: Hyperinflation. No acute abnormality is seen. Electronically Signed: Omkar Chowdary MD at 13:22 EST , Service support , Medications Given Discontinued Medications Acetaminophen (Tylenol) 1,000 mg PO X1 ONE Stop: 06/03/18 12:52 Last Admin: 06/03/18 13:15 Dose: 1,000 mg Bacitracin (Bacitracin Opthalmic) 1 applic RIGHT EYE X1 ONE Stop: 06/03/18 15:09 Emergency Department Course and Treatment: Patient presents with several days of viral symptoms, now worsening cough and feeling worsening myalgias and fatigue. Flu was checked and was negative. Chest x-ray showed no signs of pneumonia. Because patient was having frequency, urinalysis was checked and showed no evidence of an acute cystitis. Patient was given a prescription for Tessalon Perles for cough. She was given bacitracin ophthalmic ointment for her right eye. Patient was given a work note for tonight as she works third shift. Patient was able to tolerate fluids in the emergency department and was encouraged to stay well-hydrated. Patient discharged home. Treatment Plan: [] Disposition: [] Impression: Viral syndrome This note was generated with [employer] dictation software. It may contain incorrect words, spelling, and punctuation that were not noted in review of the chart prior to signing ED Disposition - Plan for ED Patient: Disposition: Home or Assisted Living Instructions: ED Upper Resp Infec No Abx Tx Prescriptions: Benzonatate [Tessalon Perle] 100 - 200 mg PO TID PRN PRN #20 cap PRN Reason: Cough Referrals: Care Physician,No Primary [Primary Care Provider] - Meg Hawthorne MD [[facility]] - 3-5 Days if not improving Additional Instructions: Drink plenty of fluids to stay well hydrated. Use ibuprofen or acetaminophen as needed for discomfort and fever. Use the Tessalon Perles as needed for cough. Follow-up with your doctor if you do not have improvement in 3-5 days. If you have any worsening of your condition or any new concerning symptoms, please return immediately to the emergency department for another evaluation.
[2018-06-03] MEDS: Acetaminophen 500 MG Tablet 1000 MG PO (13:15)
[2018-06-03 13:16] VITALS: BP 112/72; PULSE 70; RESP 16; TEMP 36.9
[2018-06-03 13:26] LABS: Bedside Glucose 88 mg/dL (70-110)
[2018-06-03 14:16] VITALS: BP 109/69; PULSE 65; RESP 16; TEMP 36.8
[2018-06-03 14:38] LABS: Mucous, Urine 0 SEEN /hpf (<or=2+)
[2018-06-03 14:43] LABS: Color, Urine Yellow (Yellow); Glucose, Dipstick Normal (Normal); Ketone-Dipstick 5 mg/dl (Negative); Leukocyte Esterase-Dipstick 25 /ul (Negative); Nitrite-Dipstick Negative (Negative); Occult Blood-Urine 25 /ul (Negative); Protein-Dipstick 30 mg/dl (Negative); Specific Gravity, Urine 1.025 (1.002-1.030); Urine Clarity Clear (Clear); Urine Urobilinogen 4 mg/dl (Normal)
[2018-06-03 14:53] LABS: Bacteria 1+ /hpf (None Seen); Red Blood Cells-Urine 0-5 SEEN /hpf (0-5); Squamous Epithelial Cells - UA 5-10 SEEN /hpf (5-10); Urine Bilirubin Dipstick 3 mg/dL (Negative); White Blood Cells 0-5 SEEN /hpf (0-5)
[2018-06-03 14:54] LABS: Calcium Oxalate Crystals Ur 2+ /hpf (<or=2+)
[2018-06-03 15:26] VITALS: BP 123/76; PULSE 88; RESP 14; O2SAT 99
== END 2018-06-03 15:27 | disposition home or self-care (01) ==
PROVIDERS: Emergency Provider Emergency Medicine
DX: B34.9 Viral infection, unspecified (principal); H10.9 Unspecified conjunctivitis; Z72.0 Tobacco use
CPT/HCPCS: 71046; 81001; 82962; 87804; 99282

== ENCOUNTER 2019-03-23 17:14 | Emergency (ER) | payer OTHER, SELFPAY ==
[2019-03-23 17:17] VITALS: BP 122/77; PULSE 73; RESP 16; TEMP 36.8; O2SAT 97; BMI 32.9
[2019-03-23 17:21] VITALS: TEMP 36.8; O2SAT 97
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
[2019-03-23] MEDS: fentaNYL 100 MCG/2 ML Ampul 50 MCG IM (17:48)
[2019-03-23 18:16] VITALS: BP 132/64; PULSE 73; RESP 16; O2SAT 96
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
[2019-03-23 18:45] VITALS: BP 128/74; PULSE 72; RESP 16; O2SAT 96
--- NOTE | 2019-03-23 19:08 | ED.RN ---
DR. PRASAD AWARE OF PT'S BP AND VITAL SIGNS, DR. PRASAD WILL CANCEL IV AND MEDICATIONS.
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
[2019-03-23 19:29] VITALS: BP 137/72; PULSE 70; RESP 21; O2SAT 99
--- NOTE | 2019-03-23 19:29 | ED.RN ---
DISCHARGE INSTRUCTIONS GIVEN TO AND REVIEWED WITH PATIENT, PATIENT DENIES QUESTIONS OR CONCERNS AND VOICES UNDERSTANDING OF DISCHARGE INSTRUCTIONS. PT AMBULATES OUT OF ROOM WITHOUT DIFFICULTY.
== END 2019-03-23 19:30 | disposition home or self-care (01) ==
LOC: ED 17:48
PROVIDERS: Emergency Provider Emergency Medicine
DX: S22.41XA Multiple fractures of ribs, right side, initial encounter for closed fracture (principal); S50.311A Abrasion of right elbow, initial encounter; S60.312A Abrasion of left thumb, initial encounter; V03.10XA Pedestrian on foot injured in collision with car, pick-up truck or van in traffic accident, initial encounter; Y93.89 Activity, other specified; Y92.410 Unspecified street and highway as the place of occurrence of the external cause; Z72.0 Tobacco use
CPT/HCPCS: 70450; 71250; 72125; 72170; 73080; 73130; 96372; 99285; J7030; A4216; J2405

== ENCOUNTER 2019-03-29 20:36 | Emergency (ER) | payer OTHER, SELFPAY ==
[2019-03-29 20:36] VITALS: BP 119/77; PULSE 63; RESP 15; TEMP 36.5; O2SAT 98; BMI 31.8
--- NOTE | 2019-03-29 20:52 | EKG12_ITS ---
Test Reason : CP Blood Pressure : / mmHG Vent. Rate : 065 BPM Atrial Rate : 065 BPM P-R Int : 140 ms QRS Dur : 082 ms QT Int : 404 ms P-R-T Axes : 077 067 050 degrees QTc Int : 420 ms Normal sinus rhythm Normal ECG Confirmed by CAMERON CRUMP, SETH ([id number]), metropolitan editor JORDAN CRUZ ([id number]) on 03/30/2019 11:26:22 AM Referred By: LV/JULES Confirmed By:SETH BARNES MD
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
[2019-03-29] MEDS: Ondansetron ODT 4 MG Tablet PO (20:57)
[2019-03-29] MEDS: morphine 10 MG/ML Syringe IM (20:57)
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
[2019-03-29 22:20] VITALS: BP 114/60; PULSE 63; RESP 18; O2SAT 96
== END 2019-03-29 22:20 | disposition home or self-care (01) ==
PROVIDERS: Emergency Provider Emergency Medicine
DX: S22.41XA Multiple fractures of ribs, right side, initial encounter for closed fracture (principal); R06.00 Dyspnea, unspecified; V03.10XA Pedestrian on foot injured in collision with car, pick-up truck or van in traffic accident, initial encounter; Y93.9 Activity, unspecified; Y92.9 Unspecified place or not applicable; Y99.9 Unspecified external cause status; F17.200 Nicotine dependence, unspecified, uncomplicated
CPT/HCPCS: 71101; 93005; 96372; 99284

== ENCOUNTER 2019-04-11 18:44 | Emergency (ER) | payer OTHER, SELFPAY ==
[2019-04-11 18:44] VITALS: BP 117/71; PULSE 64; RESP 15; TEMP 36.7; O2SAT 97; BMI 30.7
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
[2019-04-11] MEDS: HYDROcodone Bitartrate/Apap 5/325 Tablet PO (21:12)
--- NOTE | 2019-04-11 22:56 | ED.RN ---
PT WALKED OUT OF UNIT TO GO GET A DRINK WITH DAUGHTER
[2019-04-11 23:00] VITALS: BP 126/80; PULSE 71; RESP 16; O2SAT 98
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
--- NOTE | 2019-04-11 23:17 | ED.DEP ---
ED Disposition - Plan for ED Patient: Instructions: FRACTURE, Rib Prescriptions: Oxycodone HCl/Acetaminophen [Percocet 5/325] 1 tab PO Q6H PRN PRN 3 Days #12 tab PRN Reason: Pain Prescription Printed Referrals: Mona Arriola [NON-STAFF] -
== END 2019-04-11 23:25 | disposition home or self-care (01) ==
PROVIDERS: Emergency Provider Emergency Medicine
DX: S22.41XA Multiple fractures of ribs, right side, initial encounter for closed fracture (principal); X58.XXXA Exposure to other specified factors, initial encounter; Y93.9 Activity, unspecified; Y92.9 Unspecified place or not applicable; Y99.9 Unspecified external cause status; Z72.0 Tobacco use
CPT/HCPCS: 71101; 99283

== ENCOUNTER 2019-06-08 16:00 | Outpatient (RCR) | payer OTHER, SELFPAY ==
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
== END 2019-06-08 19:00 | disposition home or self-care (01) ==
LOC: PT 16:00
PROVIDERS: Referring Provider Internal Medicine; Visit Provider Internal Medicine
DX: M54.2 Cervicalgia (principal); M54.9 Dorsalgia, unspecified; M62.838 Other muscle spasm; S22.39XD Fracture of one rib, unspecified side, subsequent encounter for fracture with routine healing; V89.2XXD Person injured in unspecified motor-vehicle accident, traffic, subsequent encounter
CPT/HCPCS: 97014; 97035; 97110; 97112; 97140; 97162; 97164; 97530; G0283

== ENCOUNTER 2019-12-01 01:09 | Emergency (ER) | payer SELFPAY ==
[2019-12-01 01:10] VITALS: BP 144/96; PULSE 71; RESP 18; TEMP 36.4; O2SAT 98; BMI 34.8
[2019-12-01 01:14] VITALS: BP 144/96; PULSE 72; RESP 18; TEMP 36.4; O2SAT 98
--- NOTE | 2019-12-01 01:34 | RAD_ITS ---
STUDY: X-RAY CHEST REASON FOR EXAM: Female, 53 years old. PT STATES COUGH AND COLD SX FOR 3 WEEKS. STATES COUGH IS NOT IMPROVED, BACK PAIN FROM COUGH AND FATIGUE TECHNIQUE: Single AP portable view of the chest. COMPARISON: 04/11/2019 chest x-ray FINDINGS: There is a small focal eventration of the right hemidiaphragm more apparent than the more recent prior study. There is trace linear density in the right lower lobe. There is no visualized focal consolidation. There is no demonstrated pleural abnormality. Normal size heart. Normal mediastinum and refugio. Normal visualized pulmonary arteries. Normal visualized aortic arch and descending thoracic aorta. Normal visualized thoracic spine. Normal visualized ribs, clavicles, and shoulders. There is no demonstrated abnormality of the visualized soft tissue structures of the upper abdomen. RAD/Chest 1 View (Portable) IMPRESSION: Interval more apparent eventration of the right hemidiaphragm nonspecific. This may indicate a minimal amount of right lower lobe atelectasis. Electronically Signed: Monique Karimi MD at 2:23 EDT Tel , Service support ,
--- NOTE | 2019-12-01 02:29 | ED.VIS.GEN ---
History of Present Illness Chief Complaint: Cough Informant: Patient Narrative: She stated over the last 2 and half weeks she has had a nonspecific cough and runny nose. No coronavirus exposures. No shortness of breath. Using [id number]'s. Current severity mild. Comes in for further evaluation. Significant other with similar symptoms. Had a friend with similar symptoms acid negative for coronavirus. - Past Medical History (1) Irregular menses Status: Acute (2) Rib fractures Status: Acute (3) Rib fractures Status: Acute (4) Thickened endometrium Status: Acute Past Medical History - Allergies and Home Meds Allergies/Adverse Reactions: Allergies No Known Allergies Allergy (Verified 12/01/19 01:10) Primary Care Physician: Care Physician,No Primary [Primary Care Provider] - Prior records reviewed: Yes Past Medical History: - - See problem list Surgical History: - - Reviewed Smoking Status: Current every day smoker Alcohol: None Drugs: None Review of Systems General: Denies: Chills, Fever, Sweats Eyes: Denies: Visual changes - bilaterally, Diplopia ENT: Denies: Rhinorrhea, Sore throat Cardiovascular: Denies: Chest pain, Palpitations Respiratory: Reports: Cough. Denies: Dyspnea, Dyspnea on exertion Gastrointestinal: Denies: Abdominal pain, Nausea, Vomiting, Diarrhea, Melena, Hematochezia Genitourinary: Denies: Dysuria, Hematuria, Frequency Musculoskeletal: Denies: Back pain, Extremity Pain Skin: Denies: Rash, Wounds Neurological: Denies: Headache, Weakness, Numbness Physical Exam Vital Signs/Narrative: Vital Signs Temp Pulse Resp BP Pulse Ox 12/01/19 01:14 97.5 F L 72 18 144/96 H 98 12/01/19 01:10 97.5 F L 71 18 144/96 H 98 General: Well nourished, Well developed, No Acute Distress Head: Normocephalic, Atraumatic Eyes: Perrl, EOMI ENT: Moist mucous membranes, No rhinorrhea Neck: Supple, Nontender Cardiovascular: Regular rate, Regular rhythm, No murmurs Respiratory: No distress, CTA bilaterally, Chest nontender Abdomen: Soft, Nontender, Nondistended, Normal bowel sounds Back: Nontender, Normal Inspection Extremities: Nontender, No edema Skin: Normal color, No rash Neurological: Alert, Oriented x3, Cranial nerves II-XII grossly intact, Normal Strength, Normal Sensation Psychological: Normal affect, Normal Mood Diagnostic/Tx/Re-eval - Medical Decision Making Patient resting comfortably. Coronavirus test will be sent. Chest x-ray normal. I do not think she has a pneumonia. This is acute bronchitis versus upper respiratory infection. We will follow-up as an outpatient ED Disposition - Plan for ED Patient: Disposition: Home or Assisted Living Diagnosis: Upper respiratory infection Instructions: ED URI Viral Referrals: Care Physician,No Primary [Primary Care Provider] -
== END 2019-12-01 02:51 | disposition home or self-care (01) ==
PROVIDERS: Emergency Provider Emergency Medicine
DX: J06.9 Acute upper respiratory infection, unspecified (principal); F17.200 Nicotine dependence, unspecified, uncomplicated
CPT/HCPCS: 71045; 87635; 94799; 99281; 99282; U0003

== ENCOUNTER 2020-01-07 21:58 | Emergency (ER) | payer SELFPAY ==
[2020-01-07 21:59] VITALS: BP 133/71; PULSE 83; RESP 20; TEMP 36.2; O2SAT 97; BMI 27.8
[2020-01-07 22:02] VITALS: BP 133/71; PULSE 83; RESP 20; TEMP 36.2; O2SAT 97
--- NOTE | 2020-01-07 22:30 | RAD_ITS ---
STUDY: X-RAY CHEST REASON FOR EXAM: Female, 54 years old. COUGH X1 MONTH TECHNIQUE: PA and lateral views of the chest. COMPARISON: 12/01/2019. FINDINGS: The lungs are clear and expanded. There is no demonstrated pleural abnormality. Normal size heart. Normal mediastinum and refugio. Normal visualized pulmonary arteries. Normal visualized aortic arch and descending thoracic aorta. Normal visualized thoracic spine. Normal visualized ribs, clavicles, and shoulders. There is no demonstrated abnormality of the visualized soft tissue structures of the upper abdomen. RAD/Chest PA and Lateral IMPRESSION: Normal x-ray examination of the chest. Electronically Signed: Janet Rush MD at 22:54 EDT Tel , Service support ,
--- NOTE | 2020-01-07 22:31 | ED.VIS.URI ---
History of Present Illness Chief Complaint: Cough Informant: Patient Onset: Month(s) Context: Gradual Onset Timing: Continuous Quality: mostly [employer] cough, occ white or clear phlegm Location: chest Current Severity: Moderate Maximum Severity: Moderate Worsened by: - - nothing in particular Relieved by: - - nothing but no Rx's Associated Symptoms: Nasal Congestion, Shortness of Breath - wheezing at times, Chest Pain - soreness from coughing, Nonproductive cough. Negative for: Headache, Sinus Pressure, Myalgias, Nausea, Vomiting, Diarrhea, Hemoptysis Narrative: Patient states she has had a cough for 2 months, she is sore in her upper abdomen and her chest from coughing, mostly nonproductive, runny nose, crusty eye discharge on occasion, no fevers or chills or myalgias. No contact with COVID-19 or other ill persons that she knows of, had a test here 1 month ago when she was seen and had no prescriptions, test was negative, persistent symptoms. Has followed up with no one other than coming here now tonight. No orthopnea or edema. She does not have asthma but has been wheezing on occasion. She is not feeling dyspneic when she is not wheezing. Past Medical History - Allergies and Home Meds Allergies/Adverse Reactions: Allergies No Known Allergies Allergy (Verified 01/07/20 22:03) Primary Care Physician: Care Physician,No Primary [Primary Care Provider] - Past Medical History: None Smoking Status: Current every day smoker Review of Systems General: Reports: Malaise. Denies: Chills, Fever, Sweats Eyes: Denies: Visual changes - bilaterally, Diplopia ENT: Denies: Rhinorrhea, Sore throat Cardiovascular: Reports: Chest pain - See HPI. Denies: Palpitations Respiratory: Reports: Dyspnea - Occasional wheezing, Cough, Sputum - Rare, white or clear when present. Denies: Dyspnea on exertion, Orthopnea, Paroxysmal nocturnal dyspnea Gastrointestinal: Reports: Abdominal pain - See HPI. Denies: Nausea, Vomiting, Diarrhea, Melena, Hematochezia Genitourinary: Denies: Dysuria, Hematuria, Frequency Musculoskeletal: Denies: Myalgias, Back pain, Swelling, Extremity Pain Skin: Denies: Rash, Wounds Neurological: Denies: Headache, Weakness, Numbness Physical Exam Vital Signs/Narrative: Vital Signs Temp Pulse Resp BP Pulse Ox 01/07/20 22:02 97.2 F L 83 20 H 133/71 H 97 01/07/20 21:59 97.2 F L 83 20 H 133/71 H 97 Inital Vital Signs reviewed: Yes General: Well nourished, Well developed Head: Normocephalic, Atraumatic Eyes: Perrl, EOMI Ears: Normal external canal, TM's clear Nose: Normal Inspection, No Rhinorrhea Mouth/Throat: Normal Inspection, No Posterior Erythema, Airway Patent Neck: Supple, Nontender, No Lymphadenopathy, No Meningismus Cardiovascular: Regular rate, Regular rhythm, No murmurs Respiratory: No distress, Chest nontender, Rales - Mild right side, clear after cough, consistent with upper airway transmitted sounds, Wheezing - Occasional mild expiratory. Negative for: Rhonchi Abdomen: Soft, Nontender, Nondistended, Normal bowel sounds Back: Nontender, Normal Inspection Extremities: Nontender, No edema. Negative for: Calf Tenderness Skin: Normal color, No rash, No Trauma Neurological: Alert, Oriented x3, Cranial nerves II-XII grossly intact, Normal Strength, Normal Sensation, Normal Gait Psychological: Normal affect, Normal Mood Diagnostic/Tx/Re-eval Clinical Impression(s) from Imaging Studies Chest X-Ray 01/07/20 22:30 IMPRESSION: Normal x-ray examination of the chest. Electronically Signed: Janet Rush MD at 22:54 EDT Tel , Service support , - Medical Decision Making Patient either has a non-COVID viral illness, given her persistent cough, wheezing, and negative chest x-ray and negative COVID-19 test, or an atypical infection like mycoplasma. Given the duration of the illness and the fact that she is a smoker, will treat her with broad-spectrum antibiotics and prescribe her an inhaler. Advised to follow-up with a doctor which she is agreeable to. ED Disposition - Plan for ED Patient: Disposition: Home or Assisted Living Diagnosis: Acute wheezy bronchitis Instructions: ED Bronchitis Asthmatic Prescriptions: Azithromycin 250 mg PO DAILY #6 tab Prescription Printed Albuterol Inhaler [Ventolin Hfa] 1 - 2 puff INHALATION Q4H PRN PRN #1 inhaler PRN Reason: Wheezing Prescription Printed Referrals: Mona Arriola [NON-STAFF] - 1 Week if not improving
[2020-01-07 23:55] VITALS: BP 125/72; PULSE 80; RESP 16; O2SAT 98
== END 2020-01-07 23:57 | disposition home or self-care (01) ==
PROVIDERS: Emergency Provider Emergency Medicine
DX: J20.9 Acute bronchitis, unspecified (principal); F17.200 Nicotine dependence, unspecified, uncomplicated
CPT/HCPCS: 71046; 99282

== ENCOUNTER 2020-02-20 22:24 | Emergency (ER) | payer MEDICAID, SELFPAY ==
[2020-02-20 22:25] VITALS: BP 139/81; PULSE 65; RESP 18; TEMP 36.2; O2SAT 99; BMI 34.2
--- NOTE | 2020-02-20 22:33 | CT_ITS ---
HISTORY: RT FLANK PAIN X 4 DAYS,URINARY FRQUENCYPRIOR CHOLECYSTECTOMY ADDITIONAL HISTORY: None provided. EXAMINATION/TECHNIQUE: CT Abdomen And Pelvis W/O Contrast Injection Enteric contrast was not given. Number of images including paperwork: 454. A radiation dose optimization technique was used for this scan. COMPARISON: 10/05/2017 FINDINGS: Evaluation of the abdominopelvic organs is limited in the absence of contrast. LOWER THORAX: No consolidation or pleural effusion. Minimal scarring in the middle lobe and lingula. LIVER: No concerning focal lesion. GALLBLADDER: Cholecystectomy. BILE DUCTS: No significant biliary dilatation. SPLEEN: Unremarkable. PANCREAS: Unremarkable. ADRENAL GLANDS: Unremarkable. KIDNEYS/URETERS: Unremarkable. BOWEL: No bowel obstruction. No significant bowel wall thickening. No localized inflammation. Moderate amount of colonic stool. APPENDIX: No evidence of appendicitis. FREE FLUID: No significant free fluid. FREE AIR: None. LYMPH NODES: No pathologic appearing adenopathy. PERITONEUM, RETROPERITONEUM AND MESENTERY: Otherwise unremarkable. VASCULATURE: Unremarkable as imaged. ABDOMINAL WALL: Unremarkable. PELVIS: Unremarkable bladder. OSSEOUS AND SOFT TISSUE STRUCTURES: No acute skeletal findings. CT/Abdomen/Pelvis without Cont IMPRESSION: No acute abdominopelvic abnormality. Individualized dose optimization techniques were used for this CT. at 2354 Reported and signed by: Dominique Morrison MD Electronically Signed: Dominique Morrison MD at 23:54 EST Tel , Service support ,
--- NOTE | 2020-02-20 22:34 | ED.DCSUM_ITS ---
History of Present Illness Chief Complaint: Flank Pain Informant: Patient Onset: Days - 4 Narrative: Nontraumatic right flank pain for the past 4 days. Pain radiates to the side. Pain is persistent. Denies nausea or vomiting. Urine frequency. No dysuria or hematuria. No history of kidney stones. Using Aleve last dose 6 hours ago. No history of gastric ulcers or kidney injury. No past medical history. Denies any allergies. Prior similar symptoms: No Past Medical History - Allergies and Home Meds Allergies/Adverse Reactions: Allergies No Known Allergies Allergy (Verified 01/07/20 22:03) Primary Care Physician: Care Physician,No Primary [Primary Care Provider] - Past Medical History: None Smoking Status: Current every day smoker Review of Systems General: Denies: Chills, Fever, Sweats Eyes: Denies: Visual changes - bilaterally, Diplopia ENT: Denies: Rhinorrhea, Sore throat Cardiovascular: Denies: Chest pain, Palpitations Respiratory: Denies: Dyspnea, Cough, Dyspnea on exertion Gastrointestinal: Denies: Abdominal pain, Nausea, Vomiting, Diarrhea, Melena, Hematochezia Genitourinary: Reports: Frequency. Denies: Dysuria, Hematuria Musculoskeletal: Reports: Back pain. Denies: Extremity Pain Skin: Denies: Rash, Wounds Neurological: Denies: Headache, Weakness, Numbness Physical Exam Vital Signs/Narrative: Vital Signs Temp Pulse Resp BP Pulse Ox 02/20/20 22:25 97.1 F L 65 18 139/81 H 99 Inital Vital Signs reviewed: Yes General: Well nourished, Well developed, - - Mild uncomfortable. Head: Normocephalic, Atraumatic Eyes: Perrl, EOMI ENT: Moist mucous membranes, No rhinorrhea Neck: Supple, Nontender Cardiovascular: Regular rate, Regular rhythm, No murmurs Respiratory: No distress, CTA bilaterally, Chest nontender Abdomen: Soft, Nondistended, Normal bowel sounds, - - Tender palpation right lateral mid abdomen, no rash.. Negative for: Rodas's sign Back: Nontender, Normal Inspection, -. Negative for: CVA tenderness Extremities: Nontender, No edema Skin: Normal color, No rash Neurological: Alert, Oriented x3, Cranial nerves II-XII grossly intact, Normal Strength, Normal Sensation Psychological: Normal affect, Normal Mood Diagnostic/Tx/Re-eval Clinical Impression(s) from Imaging Studies Abdomen/Pelvis CT 02/20/20 22:33 IMPRESSION: No acute abdominopelvic abnormality. Individualized dose optimization techniques were used for this CT. at 2354 Reported and signed by: Dominique Morrison MD Electronically Signed: Dominique Morrison MD at 23:54 EST Tel , Service support , Abnormal Lab Results 02/20/20 02/20/20 02/20/20 11:25 11:25 22:40 WBC 6.9 RBC 4.90 Hgb 14.2 Hct 44.4 MCV 90.6 MCH 29.0 MCHC 32.0 RDW Std Deviation 46.5 H RDW Coeff of Zara 13.7 Plt Count 232 MPV 10.5 Immature Gran % (Auto) 0.700 Neut % (Auto) 41.7 L Lymph % (Auto) 43.8 H [place] % (Auto) 10.0 Eos % (Auto) 3.2 Baso % (Auto) 0.6 Absolute Neuts (auto) 2.9 Absolute Lymphs (auto) 3.02 Nucleated RBC % 0 Sodium 141 Potassium 3.7 Chloride 111 H Carbon Dioxide 25.0 Anion Gap 5 BUN 19 H Creatinine 1.04 H Estim Creat Clear Calc 45.58 Est GFR (MDRD) Af Amer 71 Est GFR (MDRD) Non-Af 58 L BUN/Creatinine Ratio 18.3 Glucose 96 Calcium 9.0 Total Bilirubin Direct Bilirubin AST ALT Alkaline Phosphatase Total Protein Albumin Globulin Lipase Urine Color Yellow Urine Clarity Clear Urine pH 6.5 Ur Specific [place] 1.015 Urine Protein Negative Urine Glucose (UA) Normal Urine Ketones Negative Urine Occult Blood 50 H Urine Nitrite Negative Urine Bilirubin Negative Urine Urobilinogen Normal Ur Leukocyte Esterase Negative Urine RBC 0-5 SEEN Urine WBC 0-5 SEEN Ur Squamous Epith Cells 0-5 SEEN Urine Bacteria 0 SEEN Urine Mucus 0 SEEN 02/20/20 02/20/20 23:45 23:45 WBC RBC Hgb Hct MCV MCH MCHC RDW Std Deviation RDW Coeff of Zara Plt Count MPV Immature Gran % (Auto) Neut % (Auto) Lymph % (Auto) [place] % (Auto) Eos % (Auto) Baso % (Auto) Absolute Neuts (auto) Absolute Lymphs (auto) Nucleated RBC % Sodium Potassium Chloride Carbon Dioxide Anion Gap BUN Creatinine Estim Creat Clear Calc Est GFR (MDRD) Af Amer Est GFR (MDRD) Non-Af BUN/Creatinine Ratio Glucose Calcium Total Bilirubin 0.30 Direct Bilirubin 0.10 AST 16 ALT 23 Alkaline Phosphatase 69 Total Protein 7.2 Albumin 3.6 Globulin 3.6 Lipase 383 Urine Color Urine Clarity Urine pH Ur Specific [place] Urine Protein Urine Glucose (UA) Urine Ketones Urine Occult Blood Urine Nitrite Urine Bilirubin Urine Urobilinogen Ur Leukocyte Esterase Urine RBC Urine WBC Ur Squamous Epith Cells Urine Bacteria Urine Mucus - Medical Decision Making Patient presenting with renal colic symptoms. Renal stone protocol initiated. Treated with Toradol and morphine with improvement of symptoms. Urine noted hematuria labs are stable however CT scan did not know any obstructive uropathy. Patient does have tobacco history. With right side mid lateral pain I did check a lipase and LFTs which was normal. History of cholecystectomy. Discussed will treat as renal colic continued NSAIDs as needed [place] and follow- up with urology. Signs and symptoms were discussed to return. ED Disposition - Plan for ED Patient: Disposition: Home or Assisted Living Diagnosis: Renal colic on right side, Hematuria Instructions: ED Hematuria, ED Flank Pain Uncertain Cause Prescriptions: Ibuprofen [Motrin] 600 mg PO Q6H PRN PRN #20 tab PRN Reason: Pain Or Fever Transmission Status: Pending to [facility] Hydrocodone Bitart/Apap 5-325 [[place] 5MG-325MG] 1 tablet PO Q6H PRN PRN 3 Days #10 tablet PRN Reason: Pain Transmission Status: Sent to [facility] Referrals: Care Physician,No Primary [Primary Care Provider] - Nilo Gamboa MD [STAFF PHYSICIAN] - 5-7 Days
[2020-02-20 22:44] LABS: Bacteria 0 SEEN /hpf (None Seen); Mucous, Urine 0 SEEN /hpf (<or=2+)
[2020-02-20] MEDS: Ketorolac 15 MG/ML Vial IV (22:56)
[2020-02-20] MEDS: Morphine 4 MG/ML Syringe IV (22:57)
[2020-02-20 23:00] LABS: Color, Urine Yellow (Yellow); Glucose, Dipstick Normal (Normal); Ketone-Dipstick Negative (Negative); Leukocyte Esterase-Dipstick Negative /ul (Negative); Nitrite-Dipstick Negative (Negative); Occult Blood-Urine 50 /ul (Negative); Protein-Dipstick Negative (Negative); Specific Gravity, Urine 1.015 (1.002-1.030); Urine Bilirubin Dipstick Negative (Negative); Urine Clarity Clear (Clear); Urine Urobilinogen Normal (Normal); Urine pH 6.5 (5.0 - 8.0)
[2020-02-20] MEDS: 0.9% Normal Saline 1,000 ML 250 ML IV (23:00)
[2020-02-20 23:29] LABS: Squamous Epithelial Cells - UA 0-5 SEEN /hpf (5-10)
[2020-02-20 23:31] LABS: Red Blood Cells-Urine 0-5 SEEN /hpf (0-5); White Blood Cells 0-5 SEEN /hpf (0-5)
[2020-02-20 23:50] LABS: Anion Gap 5 (5-15); BUN 19 mg/dL (7-18); BUN/Creat Ratio 18.3 RATIO (10-20); Chloride 111 mmol/L (98-107); Creatinine, Serum 1.04 mg/dL (0.55-1.02); EST Glomerular Filtration Rate 58 mL/min (>60); Est Glom Filt Rate - Afr Amer 71 mL/min (>60); Estimated Creatinine Clearance 45.58 ml/min; Glucose 96 mg/dL (74-106); Potassium 3.7 mmol/L (3.5-5.1); Sodium Level 141 mmol/L (136-145)
[2020-02-20 23:56] LABS: Absolute Lymphocyte Count 3.02 X10^3/uL (0.83-4.51); Absolute Neutrophil Count 2.9 X10^3/uL (2.0-7.7); Basophil# 0.04 X10^3/uL; Basophil% 0.6 % (0-1); Eosinophil# 0.22 X10^3/uL; Eosinophils% 3.2 % (0-5); Hematocrit 44.4 % (37-47); Hemoglobin 14.2 g/dL (12.0-15.0); Lymphocyte # 3.02 X10^3/ul (4.0); Lymphocyte % 43.8 % (19-41); Mean Corpuscular Volume 90.6 fL (81-99); Mean Platelet Vol. 10.5 fl (6.2-12.0); Monocyte# 0.69 X10^3/uL; NRBC Flagged by Analyzer 0 % (0-5); Neutrophil # 2.87 X10^3/uL (2.7-7.7); Neutrophil % 41.7 % (47-70); Platelet Count 232 K/mm3 (150-450); RBC Distribution Width CV 13.7 % (11.6-14.6); RBC Distribution Width SD 46.5 fl (35.1-43.9); White Blood Count 6.9 K/mm3 (4.4-11.0)
[2020-02-21 00:25] LABS: Lipase 383 U/L (73-393)
[2020-02-21 00:27] LABS: AST(SGOT) 16 U/L (15-37); Alanine Aminotransfer ALT/SGPT 23 U/L (13-56); Albumin, Serum 3.6 g/dL (3.2-5.0); Alkaline Phosphatase 69 U/L (45-117); Globulin 3.6 g/dL (2.2-4.2); Protein, Total 7.2 g/dL (6.4-8.2)
[2020-02-21 01:05] VITALS: BP 118/72; PULSE 63; RESP 16; O2SAT 95
== END 2020-02-21 01:05 | disposition home or self-care (01) ==
PROVIDERS: Emergency Provider Emergency Medicine
DX: N23 Unspecified renal colic (principal); R31.9 Hematuria, unspecified; F17.200 Nicotine dependence, unspecified, uncomplicated
CPT/HCPCS: 74176; 80048; 80076; 81001; 83690; 85025; 96374; 96375; 99285; J7030

== ENCOUNTER 2020-02-23 23:08 | Emergency (ER) | payer MEDICAID, SELFPAY ==
[2020-02-23 23:09] VITALS: BP 131/75; PULSE 70; RESP 15; TEMP 36.2; O2SAT 99; BMI 31.1
--- NOTE | 2020-02-23 23:42 | CT_ITS ---
STUDY: CT ABDOMEN AND PELVIS WITH CONTRAST REASON FOR EXAM: Female, 54 years old. RT FLANK PAIN X 5 DAYS -- PRIOR CHOLECYSTECTOMY RADIATION DOSAGE (If Supplied By Facility): CTDIvol = ( 18.61 ) mGy, DLP = ( 924.29 ) mGycm TECHNIQUE: Transaxial images were obtained from the dome of the diaphragm to the symphysis pubis without oral contrast. Oral and amp; IV Gastrografin and amp; 100mL Isovue-370 was administered. Sagittal and coronal images were reconstructed. Individualized dose optimization techniques were used for this CT. COMPARISON: None. FINDINGS: The visualized lung bases are unremarkable. The visualized portions of the heart are within normal limits. Normal liver. There are surgical clips in the gallbladder fossa consistent with a prior cholecystectomy. Normal spleen. Normal pancreas. Normal bilateral adrenal glands. Normal right kidney. Normal left kidney. Normal visualized stomach. Normal small intestine. Normal colon. The appendix is visualized and appears normal. Normal abdominal aorta. Normal inferior vena cava. Normal retroperitoneum. Normal urinary bladder. Normal abdominal wall. Normal osseous structures. CT/Abdomen/Pelvis WITH Contrast IMPRESSION: Normal enhanced CT of the abdomen and pelvis. Electronically Signed: Sheldon Alarcon, at 2:09 EST Tel , Service support ,
[2020-02-24] MEDS: Ondansetron 4 MG/2 ML Vial IV (00:06)
[2020-02-24] MEDS: Morphine 4 MG/ML Syringe IV (00:06)
[2020-02-24 00:16] LABS: Absolute Neutrophil Count 2.7 X10^3/uL (2.0-7.7); Basophil# 0.03 X10^3/uL; Basophil% 0.6 % (0-1); Eosinophil# 0.12 X10^3/uL; Eosinophils% 2.2 % (0-5); Hematocrit 41.7 % (37-47); Hemoglobin 13.7 g/dL (12.0-15.0); Lymphocyte % 36.7 % (19-41); Mean Corp Hgb Conc 32.9 g/dL (32-36); Mean Corpuscular Hgb 29.5 pg (27.0-32.0); Mean Corpuscular Volume 89.7 fL (81-99); Mean Platelet Vol. 10.8 fl (6.2-12.0); Monocyte# 0.62 X10^3/uL; Monocyte% 11.4 % (0-10); NRBC Flagged by Analyzer 0 % (0-5); Neutrophil # 2.66 X10^3/uL (2.7-7.7); Neutrophil % 48.7 % (47-70); Platelet Count 223 K/mm3 (150-450); RBC Distribution Width CV 13.7 % (11.6-14.6); RBC Distribution Width SD 44.7 fl (35.1-43.9); Red Blood Count 4.65 M/mm3 (4.2-5.4); White Blood Count 5.5 K/mm3 (4.4-11.0)
--- NOTE | 2020-02-24 00:24 | ED.DCSUM_ITS ---
History of Present Illness Chief Complaint: Abd Pain Narrative: Patient presenting for evaluation secondary to right-sided flank pain. Patient reports this been going on over the course about the last week. She was in the emergency department and had a work-up for this including CT, lab work, urinalysis that was found to be negative she was given a referral to urology. She reports that she was trying to follow-up with her, she was told that they did not take her form of Medicaid. Patient states that she has been having continued pain. She states that this is somewhat with movement and with palpation and change in position. No other associated symptoms such as fever nausea vomiting diarrhea, skin rashes, dysuria or hematuria. She does report that she has been having a mild amount of urinary frequency. She is never had any prior similar episodes in the past. Patient states that she had fractured ribs in that area but that was about a year ago and this pain seems somewhat different. Review of systems otherwise negative. Past Medical History - Allergies and Home Meds Allergies/Adverse Reactions: Allergies No Known Allergies Allergy (Verified 02/23/20 23:12) Primary Care Physician: Care Physician,No Primary [Primary Care Provider] - Prior records reviewed: Yes Past Medical History: - - Past history of rib fractures Smoking Status: Current every day smoker Alcohol: None Drugs: None Review of Systems All systems negative except as indicated General: Denies: Chills, Fever, Sweats Eyes: Denies: Visual changes - bilaterally, Diplopia ENT: Denies: Rhinorrhea, Sore throat Cardiovascular: Denies: Chest pain, Palpitations Respiratory: Denies: Dyspnea, Cough, Dyspnea on exertion Gastrointestinal: Reports: - - Right-sided flank pain Genitourinary: Reports: Frequency Musculoskeletal: Denies: Back pain, Extremity Pain Skin: Denies: Rash, Wounds Neurological: Denies: Headache, Weakness, Numbness Physical Exam Vital Signs/Narrative: Vital Signs Temp Pulse Resp BP Pulse Ox 02/23/20 23:09 97.2 F L 70 15 131/75 H 99 Inital Vital Signs reviewed: Yes General: Well nourished, Well developed, Obese, No Acute Distress Head: Normocephalic, Atraumatic Eyes: Perrl, EOMI ENT: Moist mucous membranes, No rhinorrhea Neck: Supple, Nontender Cardiovascular: Regular rate, Regular rhythm, No murmurs Respiratory: No distress, CTA bilaterally, Chest nontender Abdomen: Soft, Nontender, Nondistended, Normal bowel sounds, - - Patient complains of tenderness over her right flank and right lower back to palpation, no evidence of overlying vesicular rash. No deformity. Back: Nontender, Normal Inspection Extremities: Nontender, No edema Skin: Normal color, No rash Neurological: Alert, Oriented x3, Cranial nerves II-XII grossly intact, Normal Strength, Normal Sensation Psychological: Normal affect, Normal Mood Diagnostic/Tx/Re-eval Clinical Impression(s) from Imaging Studies Abdomen/Pelvis CT 02/23/20 23:42 IMPRESSION: Normal enhanced CT of the abdomen and pelvis. Electronically Signed: Sheldon Alarcon, at 2:09 EST Tel , Service support , Laboratory Data 02/23/20 02/24/20 02/24/20 00:50 00:10 00:10 WBC 5.5 RBC 4.65 Hgb 13.7 Hct 41.7 MCV 89.7 MCH 29.5 MCHC 32.9 RDW Std Deviation 44.7 H RDW Coeff of Zara 13.7 Plt Count 223 MPV 10.8 Immature Gran % (Auto) 0.400 Neut % (Auto) 48.7 Lymph % (Auto) 36.7 [place] % (Auto) 11.4 H Eos % (Auto) 2.2 Baso % (Auto) 0.6 Absolute Neuts (auto) 2.7 Absolute Lymphs (auto) 2.00 Nucleated RBC % 0 Sodium 144 Potassium 3.8 Chloride 110 H Carbon Dioxide 29.0 Anion Gap 5 BUN 17 Creatinine 1.04 H Estim Creat Clear Calc 45.58 Est GFR (MDRD) Af Amer 70 Est GFR (MDRD) Non-Af 58 L BUN/Creatinine Ratio 16.3 Glucose 115 H Calcium 9.3 Total Bilirubin 0.30 AST 100 H ALT 115 H Alkaline Phosphatase 86 Total Protein 6.7 Albumin 3.3 Globulin 3.4 Albumin/Globulin Ratio 1.0 Lipase 160 Urine Color Yellow Urine Clarity Clear Urine pH 7.0 Ur Specific [place] 1.015 Urine Protein Negative Urine Glucose (UA) Normal Urine Ketones Negative Urine Occult Blood 50 H Urine Nitrite Negative Urine Bilirubin Negative Urine Urobilinogen Normal Ur Leukocyte Esterase Negative Urine RBC 5-10 SEEN Urine WBC 0 SEEN Ur Squamous Epith Cells 0-5 SEEN Urine Bacteria 1+ Urine Mucus 0 SEEN - Medical Decision Making Patient presented for evaluation secondary to flank pain. This seems very reproducible on palpation, and would really seem more musculoskeletal but it was atraumatic in onset has been going on over the course of the week, and her initial work-up was negative. Repeat lab tests and CT imaging with oral and IV contrast was ordered. Patient's pain was addressed in the emergency department. CBC unremarkable, chemistry demonstrates a modest elevation of the patient's liver enzymes. I reviewed the patient's records, she was given a course of Or[place] which potentially could have contributed to this but not really enough to cause liver damage, she is a nondrinker, she denies any personal risk factors of hepatitis or any exposure to anybody with hepatitis A type symptoms. CT imaging was found to be negative. Patient's pain had significant improvement on repeat evaluation. This point I believe the patient is still appropriate for discharge, he would seem less likely that this is a renal issue and either is musculoskeletal versus a liver issue. I will send a acute hepatitis panel. Patient will be given a referral to GI. She will be sent home with a short course of analgesics for treatment of this pain. Patient was given reassurance and she was discharged. ED Disposition - Plan for ED Patient: Disposition: Home or Assisted Living Diagnosis: Right flank pain Instructions: ED Flank Pain Uncertain Cause Prescriptions: Lidocaine [Lidoderm] 1 ea TP DAILY #10 adh..patch Prescription Printed traMADol [Ultram] 50 mg PO Q4H PRN PRN 3 Days #20 tab PRN Reason: Pain Prescription Printed Referrals: Haris Scott MD [NON-STAFF] - 1-2 Weeks
[2020-02-24 00:37] LABS: AST(SGOT) 100 U/L (15-37); Alanine Aminotransfer ALT/SGPT 115 U/L (13-56); Albumin, Serum 3.3 g/dL (3.2-5.0); Alkaline Phosphatase 86 U/L (45-117); Anion Gap 5 (5-15); BUN 17 mg/dL (7-18); BUN/Creat Ratio 16.3 RATIO (10-20); Calcium,Total 9.3 mg/dL (8.5-10.1); Chloride 110 mmol/L (98-107); Creatinine, Serum 1.04 mg/dL (0.55-1.02); EST Glomerular Filtration Rate 58 mL/min (>60); Est Glom Filt Rate - Afr Amer 70 mL/min (>60); Estimated Creatinine Clearance 45.58 ml/min; Globulin 3.4 g/dL (2.2-4.2); Glucose 115 mg/dL (74-106); Lipase 160 U/L (73-393); Potassium 3.8 mmol/L (3.5-5.1); Protein, Total 6.7 g/dL (6.4-8.2); Sodium Level 144 mmol/L (136-145)
[2020-02-24 01:02] LABS: Color, Urine Yellow (Yellow); Glucose, Dipstick Normal (Normal); Ketone-Dipstick Negative (Negative); Leukocyte Esterase-Dipstick Negative /ul (Negative); Mucous, Urine 0 SEEN /hpf (<or=2+); Nitrite-Dipstick Negative (Negative); Occult Blood-Urine 50 /ul (Negative); Protein-Dipstick Negative (Negative); Specific Gravity, Urine 1.015 (1.002-1.030); Urine Bilirubin Dipstick Negative (Negative); Urine Clarity Clear (Clear); Urine Urobilinogen Normal (Normal); White Blood Cells 0 SEEN /hpf (0-5)
[2020-02-24 01:07] LABS: Red Blood Cells-Urine 5-10 SEEN /hpf (0-5)
[2020-02-24 01:08] LABS: Bacteria 1+ /hpf (None Seen); Squamous Epithelial Cells - UA 0-5 SEEN /hpf (5-10)
[2020-02-24 01:09] VITALS: BP 120/75; PULSE 57; RESP 15; O2SAT 95
[2020-02-24 02:53] VITALS: BP 120/75; PULSE 57; RESP 15; O2SAT 95
[2020-02-26 05:07] LABS: HEPATITIS B SURFACE AG Negative (Negative); Hepatitis A IgM Antibody Negative (Negative); Hepatitis B Core AB IgM Negative (Negative)
[2020-02-26 08:48] LABS: Hep C Antibodies >11.0 s/co ratio (0.0-0.9)
== END 2020-02-24 02:54 | disposition home or self-care (01) ==
PROVIDERS: Emergency Provider Emergency Medicine
DX: R10.9 Unspecified abdominal pain (principal); F17.200 Nicotine dependence, unspecified, uncomplicated; E66.9 Obesity, unspecified
CPT/HCPCS: 74177; 80053; 80074; 81001; 83690; 85025; 96374; 96375; 99284; J7030; Q9967; A4216; J2405

== ENCOUNTER 2020-09-20 16:16 | Emergency (ER) | payer MEDICAID, SELFPAY ==
[2020-09-20 16:17] VITALS: BP 137/74; PULSE 66; RESP 15; TEMP 36.4; O2SAT 97; BMI 30.9
[2020-09-20 16:32] VITALS: O2SAT 97
--- NOTE | 2020-09-20 16:34 | EX.ED.DYSGE1 ---
HPI History of Present Illness Chief Complaint: Cough Informant: patient Narrative Narrative: 54-year-old female presents for evaluation of cough. Patient states that for the past 6 days she has had a cough with green sputum production. She is a long-term smoker. She states that she has not had any fever. She denies any significant shortness of breath. She notes some abdominal soreness from coughing. She has never been diagnosed with emphysema or chronic bronchitis. She had a similar episode last year that was treated through the emergency department. She currently states she does not take any medications. PFSH PFSH Medical History Smoker no medical history Home Medications lidocaine 1 ea TP DAILY #10 adh..patch 02/24/20 [Rx Last Taken Unknown] albuterol sulfate [Ventolin HFA] 2 puff INHALATION Q4H PRN PRN #1 inhaler 09/20/20 [Rx Last Taken Unknown] azithromycin [Zithromax Z-Lang] See Rx Instructions .ROUTE .COMPLEX #6 tab 09/20/20 [Rx Last Taken Unknown] prednisone 60 mg PO DAILY #15 tablet 09/20/20 [Rx Last Taken Unknown] Allergy/AdvReac Type Severity Reaction Status Date / Time No Known Allergies Allergy Verified 09/20/20 16:19 Surgical History (Updated 09/20/20 @ 16:36 by Aileen Kelly) History of cholecystectomy no surgical history Social History (Updated 09/20/20 @ 16:[address] Reymundo Bishop, ) Smoking Status: Current every day smoker tobacco type: cigarettes substance use type: does not use ROS ROS ED Constitutional Constitutional ED: Denies chills or weight loss Eyes Eyes: Denies change in vision or diplopia ENT ENT ED: Denies ear pain, rhinorrhea or sore throat Cardiovascular Cardiovascular: Denies chest pain, orthopnea, palpitations or racing heartbeat Respiratory/Chest Respiratory/Chest: Reports cough and sputum; Denies dyspnea or orthopnea Gastrointestinal Gastrointestinal: Denies abdominal pain, diarrhea, nausea or vomiting Genitourinary Genitourinary ED: Denies dysuria, hematuria or urinary frequency Musculoskeletal Musculoskeletal: Denies arthralgias or myalgias Integumentary Denies abscess or rash Neurologic Neurologic: Denies headache(s) or weakness Psychiatric Psychiatric: Denies anxiety, depression, suicidal ideation or suicidal thoughts Endocrine Endocrinology: Denies polydipsia, polyphagia or polyuria Allergic/Immunologic Allergic/Immunologic ED: Denies mouth swelling, tongue swelling or urticaria EXAM Physical Exam Const Vital Signs: 09/20/20 16:17 09/20/20 16:32 Temperature 97.5 F L Temperature Source Temporal Pulse Rate 66 Respiratory Rate 15 Respiratory Effort Normal Non-Labored Respiratory Depth Normal Respiratory Pattern Normal Blood Pressure 137/74 H Blood Pressure Mean 95 Pulse Ox 97 Oxygen Delivery Method Room Air Room Air Positive well nourished and well developed General Appearance ED: well developed HEENT Reports normocephalic, head/scalp atraumatic and moist mucous membranes Eyes PERRL and EOMs intact bilaterally Neck no lymphadenopathy, supple and no JVD Resp normal respiratory effort Resp Narrative: There are few scattered wheezes and rhonchi at the bases bilaterally that improved with coughing Cardio regular rate, regular rhythm and no murmurs GI normal to inspection, nondistended, normoactive bowel sounds and non-tender Palpation: soft Back/Spine no CVA tenderness and normal ROM Extremity normal to inspection General Extremety ED: Negative for edema General Extremity: Negative for edema Neuro oriented x3 and CN's II-XII intact bilaterally Sensorium / Orientation: alert Motor Exam: strength 5/5 throughout Psych mental status grossly normal Mood & Affect: Negative for depressed or tearful Skin no rashes or lesions noted and no wounds MDM MDM MDM Narrative Medical decision making narrative: Patient will be treated with albuterol MDI, burst doses of prednisone, and azithromycin. Patient was encouraged to quit smoking. She should follow-up to establish with primary care Discharge Plan Triage Chief Complaint: Cough ED Provider: Reymundo Bishop Dx/Rx/DC Orders Clinical Impression: Acute bronchitis with bronchospasm Instructions: ED Bronchitis with Wheezing (Adult) Prescriptions: New prednisone 20 MG tablet 60 mg PO DAILY Qty: 15 RF: 0 albuterol sulfate [Ventolin HFA] 1 INHALER inhaler 2 puff inhalation Q4H PRN PRN (Reason: Wheezing) Qty: 1 RF: 0 azithromycin [Zithromax Z-Lang] 250 mg tablet See Rx Instructions .ROUTE .COMPLEX Qty: 6 RF: 0 No Action lidocaine 1 EACH adhesive patch,medicated 1 ea TP DAILY Qty: 10 RF: 0 Primary Care Provider: Care Physician,No Primary Referrals: Shaquille Munoz MD [STAFF PHYSICIAN] - As Needed (for primary care needs) Care Physician,No Primary [Primary Care Provider] - Disposition Disposition: Home, self care
== END 2020-09-20 17:05 | disposition home or self-care (01) ==
LOC: ED 16:46
PROVIDERS: Emergency Provider Emergency Medicine
DX: J20.9 Acute bronchitis, unspecified (principal); F17.210 Nicotine dependence, cigarettes, uncomplicated
CPT/HCPCS: 99282

== ENCOUNTER 2021-01-15 10:49 | Emergency (ER) | payer MEDICAID, SELFPAY ==
[2021-01-15 10:51] VITALS: BP 124/78; PULSE 57; RESP 17; TEMP 36.6; O2SAT 95; BMI 33.5
--- NOTE | 2021-01-15 11:28 | CT_ITS ---
EXAM: CT HEAD WITHOUT INTRAVENOUS CONTRAST : 1965 CLINICAL INDICATION: headache TECHNIQUE: Multiple axial images were obtained of the head without intravenous contrast. This CT exam was performed using one or more of the following dose reduction techniques: automated exposure control, adjustment of the mA and/or kV according to patient size, and/or use of iterative reconstruction technique. This report was created using [employer] [place] report generation technology. COMPARISON: None. FINDINGS: BRAIN AND EXTRA-AXIAL SPACES: Unremarkable. No intra- or extra-axial hemorrhage. No evidence of acute infarct. No intracranial mass or mass effect. There is preservation of the duncan/white matter interface. Posterior fossa structures are unremarkable. Ventricles are appropriate for age. No hydrocephalus. Basal cisterns are patent. BONES/JOINTS: Unremarkable. No discrete lytic or blastic abnormalities. SINUSES: There is mucosal thickening with an air-fluid level in the left maxillary sinus. MASTOID AIR CELLS: Unremarkable. Clear. ORBITS: Visualized globes, extraocular muscles, optic nerves and retrobulbar fat appear unremarkable. CT/Brain/Head without Contrast IMPRESSION: 1. No acute intracranial abnormality. 2. Left maxillary sinusitis. Individualized dose optimization techniques were used for this CT. at 1246 Reported and signed by: Agapito Looney MD Electronically Signed: Agapito Looney MD at 12:45 EDT Tel , Service support ,
--- NOTE | 2021-01-15 11:30 | EX.ED.DYSGE1 ---
HPI History of Present Illness Chief Complaint: Cough Informant: patient Onset/Context/Timing Onset: Weeks Context: Gradual Onset Current Severity: Moderate Maximum Severity: Moderate Narrative Narrative: Patient presents with cough for the last week and a half and sinus pressure and congestion for the last 3 weeks. She went to an urgent care and was given prescription for Keflex. She has completed that but noted no improvement. She complains of sinus pressure worse on the left side and behind her left eye. No fever or chills. She reports chest congestion with cough but is not bringing up any sputum. PFSH PFS Medical History Smoker Home Medications amoxicillin-pot clavulanate [Augmentin] 1 tab PO BID #20 tab 01/15/21 [Rx Last Taken Unknown] Allergy/AdvReac Type Severity Reaction Status Date / Time No Known Allergies Allergy Verified 01/15/21 10:49 Surgical History History of cholecystectomy Social History Smoking Status: Current every day smoker tobacco type: cigarettes substance use type: does not use ROS ROS ED Constitutional Constitutional ED: Denies chills or fever(s) Eyes Eyes: Denies change in vision ENT ENT ED: Reports other Details: Sinus pressure left greater than right ; Denies sore throat Cardiovascular Cardiovascular: Denies chest pain Respiratory/Chest Respiratory/Chest: Reports cough and dyspnea; Denies sputum Gastrointestinal Gastrointestinal: Denies abdominal pain, diarrhea, nausea or vomiting Genitourinary Genitourinary ED: Denies dysuria Musculoskeletal Musculoskeletal: Denies back pain Integumentary Denies rash Neurologic Neurologic: Reports headache(s); Denies weakness Allergic/Immunologic Allergic/Immunologic ED: Denies urticaria EXAM Physical Exam Const Vital Signs: 01/15/21 10:51 01/15/21 11:47 Temperature 97.9 F Temperature Source Temporal Pulse Rate 57 L Respiratory Rate 17 Respiratory Effort Normal Respiratory Depth Normal Respiratory Pattern Normal Blood Pressure 124/78 H Blood Pressure Mean 93 Pulse Ox 95 Oxygen Delivery Method Room Air Positive well nourished and well developed General Appearance ED: well developed HEENT Reports moist mucous membranes HEENT Narrative: Left maxillary and frontal sinus tenderness. Neck supple Chest Wall inspection of chest normal and palpation of chest normal Resp normal respiratory effort and clear to auscultation bilaterally Cardio regular rate and regular rhythm Extremity normal to inspection Neuro oriented x3 and no sensory deficits noted Sensorium / Orientation: alert Motor Exam: strength 5/5 throughout Psych mental status grossly normal Skin no rashes or lesions noted MDM MDM MDM Narrative Medical decision making narrative: Patient was given Toradol, Reglan, Benadryl, IV fluids. Head CT obtained. Covid swab ordered. Lab Data Attestation: I reviewed the patient's lab results. Labs: Covid test negative Radiography Diagnostic Testing: Radiology Impression Brain CT 01/15/21 11:28 IMPRESSION: 1. No acute intracranial abnormality. 2. Left maxillary sinusitis. Individualized dose optimization techniques were used for this CT. at 1246 Reported and signed by: Agapito Looney MD Electronically Signed: Agapito Looney MD at 12:45 EDT Tel , Service support , Treatment and Re-Evaluation Comments:: On repeat evaluation patient resting comfortably. She does report improvement in her headache. CT scan does reveal left maxillary sinusitis with no acute intracranial abnormality. Patient be treated with a course of Augmentin, first dose given here. Discharge Plan Triage Chief Complaint: Cough ED Provider: Jacki Hatfield Dx/Rx/DC Orders Clinical Impression: Sinusitis, Headache Instructions: ED Sinusitis (Antibiotic Treatment) Prescriptions: New amoxicillin-pot clavulanate [Augmentin] 875-125 mg tablet 1 tab PO BID Qty: 20 RF: 0 Primary Care Provider: Care Physician,No Primary Referrals: Micky Cano MD [STAFF PHYSICIAN] - As Needed Care Physician,No Primary [Primary Care Provider] - Disposition Disposition: Home, Self Care
[2021-01-15] MEDS: Ketorolac 30 MG/ML Syringe IV (11:47)
[2021-01-15] MEDS: DiphenhydrAMINE 50 MG/ML Syringe 12.5 MG IV (11:47)
[2021-01-15] MEDS: Metoclopramide 10 MG/2 ML Vial 5 MG IV (11:48)
--- NOTE | 2021-01-15 11:55 | RAD_ITS ---
STUDY: X-RAY CHEST REASON FOR EXAM: Female, 55 years old. cough TECHNIQUE: Frontal portable view of the chest COMPARISON: 07 January 2020 FINDINGS: The lungs are clear and expanded. There is no demonstrated pleural abnormality. Normal size heart. Normal mediastinum and refugio. Normal visualized pulmonary arteries. Normal visualized aortic arch and descending thoracic aorta. Normal visualized thoracic spine. Normal visualized ribs, clavicles, and shoulders. There is no demonstrated abnormality of the visualized soft tissue structures of the upper abdomen. RAD/Chest 1 View (Portable) IMPRESSION: Normal x-ray examination of the chest. Electronically Signed: Deidre Gumaan MD at 13:37 EDT Tel , Service support ,
[2021-01-15] MEDS: Amox/Clavulanate 875 MG Tablet PO (13:22)
[2021-01-15 13:26] VITALS: BP 137/78; PULSE 52; RESP 18; O2SAT 95
== END 2021-01-15 13:28 | disposition home or self-care (01) ==
PROVIDERS: Emergency Provider Emergency Medicine
DX: J32.0 Chronic maxillary sinusitis (principal); R51.9 Headache, unspecified; F17.210 Nicotine dependence, cigarettes, uncomplicated
CPT/HCPCS: 70450; 71045; 87426; 96361; 96374; 96375; 99284; J7040

== ENCOUNTER 2021-04-07 15:43 | Emergency (ER) | payer BC, MEDICAID, SELFPAY ==
[2021-04-07 15:44] VITALS: BP 127/72; PULSE 61; RESP 16; TEMP 36.4; O2SAT 97; BMI 32.2
--- NOTE | 2021-04-07 16:25 | RAD_ITS ---
STUDY: X-RAY CHEST REASON FOR EXAM: Female, 55 years old. Cough sob TECHNIQUE: Frontal view COMPARISON: 01/15/2021 FINDINGS: The lungs are clear and expanded. There is no demonstrated pleural abnormality. Normal size heart. Normal mediastinum and refugio. Normal visualized pulmonary arteries. Normal visualized aortic arch and descending thoracic aorta. Normal visualized thoracic spine. Normal visualized ribs, clavicles, and shoulders. There is no demonstrated abnormality of the visualized soft tissue structures of the upper abdomen. RAD/Chest 1 View (Portable) IMPRESSION: Normal x-ray examination of the chest. Electronically Signed: Ronald Ortiz DO at 16:42 EST Tel [phone], Service support ,
--- NOTE | 2021-04-07 17:19 | EX.ED.VIS.UR ---
HPI HPI - URI History of Present Illness Chief Complaint: Cough Informant: patient Onset/Context/Timing Onset: Weeks (2) Context: Gradual Onset Timing: Continuous Associated Symptoms Associated Symptoms: Positive for Headache, Myalgias (Mild mostly in back), Shortness of Breath (When coughing only/bronchospasm) and Nonproductive cough; Negative for Nausea, Vomiting, Chest Pain and Hemoptysis Narrative Narrative: Patient states she has been coughing a total of 2 weeks with feeling worse last several days, feels like she has bronchitis, states I get this every year. However, she presents during a surgeon the pandemic, she has not tested herself against Covid, she has not been vaccinated, nor she been vaccinated against influenza. She had 1 bout of diarrhea recently and states it was just because I took Mucinex. ROS ROS ED Constitutional Constitutional ED: Reports body ache(s), chills, fatigue, fever(s), headache(s) and malaise Eyes Eyes: Denies change in vision or diplopia ENT ENT ED: Reports sore throat; Denies rhinorrhea Cardiovascular Cardiovascular: Denies chest pain or palpitations Respiratory/Chest Respiratory/Chest: Reports cough, dyspnea and dyspnea on exertion Gastrointestinal Gastrointestinal: Reports diarrhea; Denies abdominal pain, nausea or vomiting Genitourinary Genitourinary ED: Denies dysuria or hematuria Musculoskeletal Musculoskeletal: Denies back pain or neck pain Integumentary Denies abscess or rash Neurologic Neurologic: Reports headache(s); Denies paresthesias or weakness Psychiatric Psychiatric: Denies anxiety or suicidal thoughts PFSH PFSH Medical History Smoker Home Medications amoxicillin-pot clavulanate [Augmentin] 1 tab PO BID #20 tab 01/15/21 [Rx Last Taken Unknown] benzonatate 200 mg PO TID PRN PRN #20 capsule 04/07/21 [Rx Last Taken Unknown] Allergy/AdvReac Type Severity Reaction Status Date / Time No Known Allergies Allergy Verified 04/07/21 15:45 Surgical History History of cholecystectomy Social History Smoking Status: Current every day smoker tobacco type: cigarettes substance use type: does not use EXAM Physical Exam Const Vital Signs: 04/07/21 15:44 04/07/21 16:29 Temperature 97.5 F L Temperature Source Temporal Pulse Rate 61 Respiratory Rate 16 Respiratory Pattern Normal Blood Pressure 127/72 H Blood Pressure Mean 90 Pulse Ox 97 Positive well nourished and well developed Constitutional Narrative: Well-appearing, no distress General Appearance ED: well developed and NAD HEENT Reports moist mucous membranes normocephalic and atraumatic Eyes PERRL and EOMs intact bilaterally Neck full ROM and supple Resp normal respiratory effort and clear to auscultation bilaterally Cardio regular rate, regular rhythm and no murmurs Rate: Negative for tachycardic GI non-tender and non-distended Auscultation: normoactive bowel sounds Palpation: soft Back/Spine no CVA tenderness General Back: other FROM Extremity normal to inspection and no calf tenderness General Extremety ED: Negative for edema, pulses abnormal or tenderness General Extremity: Negative for edema or pulses abnormal Neuro oriented x3, CN's II-XII intact bilaterally and no sensory deficits noted Sensorium / Orientation: awake and alert Motor Exam: strength 5/5 throughout Skin no rashes or lesions noted and no wounds MDM MDM MDM Narrative Medical decision making narrative: Rapid influenza and Covid antigen both negative. However since she presents 2 weeks out of symptoms, this could be a false negative Covid test and she has many of the symptoms. We will send a PCR and advised her to continue to isolate but since her oxygen saturations are normal and she has a normal chest x-ray, she can go home and continue to isolate for now. Discussed reasons to return. Do not think any antibiotics are indicated right now since she does not have COPD. Radiography Diagnostic Testing: Clinical Impression(s) from Imaging Studies Chest X-Ray 04/07/21 16:25 IMPRESSION: Normal x-ray examination of the chest. Electronically Signed: Ronald Ortiz DO at 16:42 EST Tel [phone], Service support , Discharge Plan Triage Chief Complaint: Cough ED Provider: Angel Ramsey Dx/Rx/DC Orders Clinical Impression: Acute bronchitis with bronchospasm, Suspected COVID-19 virus infection Instructions: Coronavirus Disease 2019 (COVID-19): Caring for Yourself or Others, ED Bronchitis, No Antibiotic (Adult) Prescriptions: New benzonatate [benzonatate] 100 MG capsule 200 mg PO TID PRN PRN (Reason: Cough) Qty: 20 RF: 0 No Action amoxicillin-pot clavulanate [Augmentin] 875-125 mg tablet 1 tab PO BID Qty: 20 RF: 0 Primary Care Provider: Care Physician,No Primary Referrals: Mona Arriola [NON-STAFF] - 1 Week if not improving Care Physician,No Primary [Primary Care Provider] - Activity Restrictions/Additional Instructions: Try to get a home portable pulse oximeter and closely watch your oxygen levels periodically. If you stay below 90% for more than a minute or so, and/or you are feeling like your breathing is getting worse, return to the emergency department for further evaluation. Disposition Disposition: Home, Self Care
--- NOTE | 2021-04-07 17:23 | CM.ED ---
SW Note Referral Source: Case Find Referral Reason: No Primary Care Physician (PCP) SW reviewed chart and noted that patient has no PCP. SW provided patient with list of [facility] and [facility] Physician List for reference. SW also provided patient with handout ?Where to go When?. No other issues or concerns voiced at this time. SW remains available for any additional needs. Plan: Provided patient with PCP information Chrissy DAHL
[2021-04-07] MEDS: Benzonatate 100 MG Capsule 200 MG PO (17:53)
== END 2021-04-07 17:54 | disposition home or self-care (01) ==
PROVIDERS: Emergency Provider Emergency Medicine
DX: J20.9 Acute bronchitis, unspecified (principal); F17.210 Nicotine dependence, cigarettes, uncomplicated; Z20.822 Contact with and (suspected) exposure to COVID-19
CPT/HCPCS: 71045; 87426; 87635; 87804; 87880; 99283; U0005; U0003

== ENCOUNTER 2021-08-24 00:37 | Emergency (ER) | payer BC, MEDICAID, SELFPAY ==
[2021-08-24 00:38] VITALS: BP 134/78; PULSE 70; RESP 18; TEMP 36.6; O2SAT 97; BMI 31.8
--- NOTE | 2021-08-24 01:05 | EDS_ITS ---
HPI HPI - URI History of Present Illness Chief Complaint: Cough Informant: patient Onset/Context/Timing Onset: Weeks (2) Context: Gradual Onset Timing: Continuous Quality: Dry cough Location: Chest Worsened by: - (Nothing) Relieved by: - (Nothing) Associated Symptoms Associated Symptoms: Positive for Shortness of Breath and Nonproductive cough; Negative for Nasal Congestion, Headache, Sinus Pressure, Myalgias, Nausea, Vomiting, Diarrhea, Chest Pain, Hemoptysis and Productive Cough Narrative Narrative: Present with a cough that has been constant for the past 2 weeks. Patient states it has gradually gotten worse. Patient states it has been constant. Patient denies any sputum production. Patient states she feels weak and short of breath at times. Patient states nothing makes her cough any better or worse. Patient does admit to some rhinorrhea and a sore throat. Patient also states she has been having some pain in her back that is worse with coughing. ROS ROS ED Constitutional Constitutional ED: Denies chills or fever(s) Eyes Eyes: Denies blurry vision or change in vision ENT ENT ED: Reports rhinorrhea and sore throat Cardiovascular Cardiovascular: Denies chest pain or palpitations Respiratory/Chest Respiratory/Chest: Reports cough and dyspnea Gastrointestinal Gastrointestinal: Denies nausea or vomiting Genitourinary Genitourinary ED: Reports urinary frequency; Denies dysuria or hematuria Musculoskeletal Musculoskeletal: Reports back pain; Denies neck pain Integumentary Denies abscess or rash Neurologic Neurologic: Denies headache(s) or weakness Allergic/Immunologic Allergic/Immunologic ED: Denies mouth swelling or urticaria PFSH PFSH Medical History Smoker Home Medications benzonatate 100 mg PO TID PRN #20 cap 08/24/21 [Rx Last Taken Unknown] Allergy/AdvReac Type Severity Reaction Status Date / Time No Known Allergies Allergy Verified 08/24/21 00:42 Surgical History History of cholecystectomy Social History Smoking Status: Current every day smoker tobacco type: cigarettes substance use type: does not use EXAM Physical Exam Const Vital Signs: 08/24/21 00:38 08/24/21 00:44 Temperature 97.9 F Temperature Source Temporal Pulse Rate 70 Respiratory Rate 18 Respiratory Effort Normal Blood Pressure 134/78 H Blood Pressure Mean 96 Pulse Ox 97 Oxygen Delivery Method Room Air Positive well nourished and well developed General Appearance ED: well developed HEENT Reports moist mucous membranes Neck supple and no JVD Resp normal respiratory effort Effort and Inspection: Negative for retractions Auscultation: rhonchi throughout Cardio regular rate, regular rhythm and no murmurs GI normal to inspection, nondistended, normoactive bowel sounds and non-tender Palpation: soft Extremity normal to inspection General Extremety ED: Negative for edema or tenderness General Extremity: Negative for edema Neuro oriented x3, CN's II-XII intact bilaterally and no sensory deficits noted Sensorium / Orientation: alert Motor Exam: strength 5/5 throughout Psych mental status grossly normal Skin no rashes or lesions noted MDM MDM MDM Narrative Medical decision making narrative: Portable 1 view chest x-ray was obtained. On my interpretation, lung sainz are clear. There is normal cardiac silhouette. Bony thorax is normal. There is no acute process noted. Radiologist also interpreted the x-ray and agrees. COVID-19 rapid antigen was obtained and was negative. Influenza A and influenza B swabs were obtained and were negative. CBC was within normal limits. Comprehensive metabolic profile was within normal limits. Anion gap was normal. Urinalysis does not show any evidence of urinary tract infection. Patient was advised of her findings. Patient was advised that this is most likely a viral bronchitis. Patient was given a prescription for Tessalon Perles to take as needed for cough. Patient was instructed to follow- up with her primary care physician in 5 to 7 days. Patient understood and was agreeable with the plan. All questions were answered. Lab Data Attestation: I reviewed the patient's lab results. Labs: Laboratory Results - last 24 hr 08/24/21 08/24/21 08/24/21 01:15 01:20 01:20 WBC Cancelled Corrected WBC Cancelled RBC Cancelled Hgb Cancelled Hct Cancelled MCV Cancelled MCH Cancelled MCHC Cancelled RDW Std Deviation Cancelled RDW Coeff of Zara Cancelled Plt Count Cancelled MPV Cancelled Immature Gran % (Auto) Cancelled Neut % (Auto) Cancelled Lymph % (Auto) Cancelled [place] % (Auto) Cancelled Eos % (Auto) Cancelled Baso % (Auto) Cancelled Absolute Neuts (auto) Cancelled Absolute Lymphs (auto) Cancelled Total Counted Cancelled Neutrophils % (Manual) Cancelled Band Neutrophils % Cancelled Lymphocytes % (Manual) Cancelled Monocytes % (Manual) Cancelled Eosinophils % (Manual) Cancelled Basophils % (Manual) Cancelled Metamyelocytes % Cancelled Myelocytes % Cancelled Promyelocytes % Cancelled Blast Cells % Cancelled Plasma Cell % (Manual) Cancelled Other Cells % Cancelled Nucleated RBC % Cancelled Nucleated RBCs/100 WBC Cancelled Differential Comment Cancelled Diff Path Review Cancelled Hypersegmented Neuts Cancelled Atypical Lymphocytes Cancelled Reactive Lymphocytes Cancelled Smudge Cells Cancelled Toxic Granulation Cancelled Toxic Vacuolation Cancelled Dohle Bodies Cancelled Rhys Rods Cancelled Platelet Estimate Cancelled Plt Morphology Comment Cancelled RBC Morphology Cancelled Polychromasia Cancelled Hypochromasia Cancelled Poikilocytosis Cancelled Basophilic Stippling Cancelled Anisocytosis Cancelled Microcytosis Cancelled Macrocytosis Cancelled Spherocytes Cancelled Sickle Cells Cancelled Target Cells Cancelled Tear Drop Cells Cancelled Ovalocytes Cancelled Stomatocytes Cancelled [place] Bodies Cancelled [place] Cells Cancelled Bite Cells Cancelled Crenated Cell Cancelled Acanthocytes (Spur) Cancelled Rouleaux Cancelled Schistocytes Cancelled Sodium 138 Potassium 4.7 Chloride 110 H Carbon Dioxide 25.0 Anion Gap 3 L BUN 14 Creatinine 0.90 Estim Creat Clear Calc 52.04 Est GFR (MDRD) Af Amer 83 Est GFR (MDRD) Non-Af 69 BUN/Creatinine Ratio 15.6 Glucose 102 Calcium 9.0 Total Bilirubin 0.70 AST 45 H ALT 28 Alkaline Phosphatase 68 Total Protein 7.5 Albumin 3.4 Globulin 4.1 Albumin/Globulin Ratio 0.8 L Urine Color Yellow Urine Clarity Clear Urine pH 7.0 Ur Specific [place] 1.010 Urine Protein Negative Urine Glucose (UA) Normal Urine Ketones Negative Urine Occult Blood 25 H Urine Nitrite Negative Urine Bilirubin Negative Urine Urobilinogen Normal Ur Leukocyte Esterase Negative Urine RBC 0-5 SEEN Urine WBC 0 SEEN Ur Squamous Epith Cells 0 SEEN Urine Bacteria 0 SEEN Urine Mucus 0 SEEN 08/24/21 01:50 WBC 6.1 Corrected WBC RBC 4.94 Hgb 14.3 Hct 43.6 MCV 88.3 MCH 28.9 MCHC 32.8 RDW Std Deviation 42.5 RDW Coeff of Zara 13.2 Plt Count 205 MPV 10.2 Immature Gran % (Auto) 0.200 Neut % (Auto) 53.0 Lymph % (Auto) 32.4 [place] % (Auto) 11.4 H Eos % (Auto) 2.3 Baso % (Auto) 0.7 Absolute Neuts (auto) 3.2 Absolute Lymphs (auto) 1.96 Total Counted Neutrophils % (Manual) Band Neutrophils % Lymphocytes % (Manual) Monocytes % (Manual) Eosinophils % (Manual) Basophils % (Manual) Metamyelocytes % Myelocytes % Promyelocytes % Blast Cells % Plasma Cell % (Manual) Other Cells % Nucleated RBC % 0 Nucleated RBCs/100 WBC Differential Comment Diff Path Review Hypersegmented Neuts Atypical Lymphocytes Reactive Lymphocytes Smudge Cells Toxic Granulation Toxic Vacuolation Dohle Bodies Rhys Rods Platelet Estimate Plt Morphology Comment RBC Morphology Polychromasia Hypochromasia Poikilocytosis Basophilic Stippling Anisocytosis Microcytosis Macrocytosis Spherocytes Sickle Cells Target Cells Tear Drop Cells Ovalocytes Stomatocytes [place] Bodies [place] Cells Bite Cells Crenated Cell Acanthocytes (Spur) Rouleaux Schistocytes Sodium Potassium Chloride Carbon Dioxide Anion Gap BUN Creatinine Estim Creat Clear Calc Est GFR (MDRD) Af Amer Est GFR (MDRD) Non-Af BUN/Creatinine Ratio Glucose Calcium Total Bilirubin AST ALT Alkaline Phosphatase Total Protein Albumin Globulin Albumin/Globulin Ratio Urine Color Urine Clarity Urine pH Ur Specific [place] Urine Protein Urine Glucose (UA) Urine Ketones Urine Occult Blood Urine Nitrite Urine Bilirubin Urine Urobilinogen Ur Leukocyte Esterase Urine RBC Urine WBC Ur Squamous Epith Cells Urine Bacteria Urine Mucus Radiography Chest X-Ray - ED: 1 View, Read by ED Physician, Read by Radiologist and No Acute Disease Diagnostic Testing: Clinical Impression(s) from Imaging Studies Chest X-Ray 08/24/21 01:08 IMPRESSION: No acute cardiopulmonary disease. Electronically Signed: Cristina Mcintosh MD at 2:00 EDT , Discharge Plan Triage Chief Complaint: Cough ED Provider: Kevin Mckeon Dx/Rx/DC Orders Clinical Impression: Acute viral bronchitis Instructions: ED Bronchitis, No Antibiotic (Adult) Prescriptions: New benzonatate 100 mg capsule 100 mg PO TID PRN (Reason: cough) Qty: 20 RF: 0 Stand Alone Forms: ED Work / School Excuse Primary Care Provider: Care Physician,No Primary Referrals: Jonathan Bernal MD [STAFF PHYSICIAN] - 5-7 Days Care Physician,No Primary [Primary Care Provider] - Disposition Disposition: Home, Self Care
--- NOTE | 2021-08-24 01:08 | RAD_ITS ---
STUDY: X-RAY CHEST REASON FOR EXAM: Female, 55 years old. Cough TECHNIQUE: Single AP portable view of the chest. COMPARISON: 04/07/2021. FINDINGS: The lungs are clear and expanded. There is no demonstrated pleural abnormality. Normal size heart. Normal mediastinum and refugio. Normal visualized pulmonary arteries. There is atherosclerotic calcification of the aortic arch with tortuosity. Normal visualized thoracic spine. Normal visualized ribs, clavicles, and shoulders. There is no demonstrated abnormality of the visualized soft tissue structures of the upper abdomen. RAD/Chest 1 View (Portable) IMPRESSION: No acute cardiopulmonary disease. Electronically Signed: Cristina Mcintosh MD at 2:00 EDT ,
[2021-08-24 01:19] LABS: Bacteria 0 SEEN /hpf (None Seen); Mucous, Urine 0 SEEN /hpf (<or=2+); Squamous Epithelial Cells - UA 0 SEEN /hpf (5-10); White Blood Cells 0 SEEN /hpf (0-5)
[2021-08-24 01:21] LABS: Color, Urine Yellow (Yellow); Glucose, Dipstick Normal (Normal); Ketone-Dipstick Negative (Negative); Leukocyte Esterase-Dipstick Negative /ul (Negative); Nitrite-Dipstick Negative (Negative); Occult Blood-Urine 25 /ul (Negative); Protein-Dipstick Negative (Negative); Urine Bilirubin Dipstick Negative (Negative); Urine Clarity Clear (Clear); Urine Urobilinogen Normal (Normal)
[2021-08-24 01:27] LABS: Red Blood Cells-Urine 0-5 SEEN /hpf (0-5)
[2021-08-24 01:50] LABS: ALB/GLOB Ratio 0.8 RATIO (0.9-2.4); AST(SGOT) 45 U/L (15-37); Alanine Aminotransfer ALT/SGPT 28 U/L (13-56); Albumin, Serum 3.4 g/dL (3.2-5.0); Alkaline Phosphatase 68 U/L (45-117); Anion Gap 3 (5-15); BUN 14 mg/dL (7-18); BUN/Creat Ratio 15.6 RATIO (10-20); Chloride 110 mmol/L (98-107); EST Glomerular Filtration Rate 69 mL/min (>60); Est Glom Filt Rate - Afr Amer 83 mL/min (>60); Estimated Creatinine Clearance 52.04 ml/min; Globulin 4.1 g/dL (2.2-4.2); Glucose 102 mg/dL (74-106); Potassium 4.7 mmol/L (3.5-5.1); Protein, Total 7.5 g/dL (6.4-8.2); Sodium Level 138 mmol/L (136-145)
[2021-08-24 01:54] LABS: Absolute Lymphocyte Count 1.96 X10^3/uL (0.83-4.51); Absolute Neutrophil Count 3.2 X10^3/uL (2.0-7.7); Basophil# 0.04 X10^3/uL; Basophil% 0.7 % (0-1); Eosinophil# 0.14 X10^3/uL; Eosinophils% 2.3 % (0-5); Hematocrit 43.6 % (37-47); Hemoglobin 14.3 g/dL (12.0-15.0); Lymphocyte # 1.96 X10^3/ul (0.83-4.51); Lymphocyte % 32.4 % (19-41); Mean Corp Hgb Conc 32.8 g/dL (32-36); Mean Corpuscular Hgb 28.9 pg (27.0-32.0); Mean Corpuscular Volume 88.3 fL (81-99); Mean Platelet Vol. 10.2 fl (6.2-12.0); Monocyte# 0.69 X10^3/uL; Monocyte% 11.4 % (0-10); NRBC Flagged by Analyzer 0 % (0-5); Neutrophil # 3.21 X10^3/uL (2.7-7.7); Platelet Count 205 K/mm3 (150-450); RBC Distribution Width CV 13.2 % (11.6-14.6); RBC Distribution Width SD 42.5 fl (35.1-43.9); Red Blood Count 4.94 M/mm3 (4.2-5.4); White Blood Count 6.1 K/mm3 (4.4-11.0)
[2021-08-24 02:16] VITALS: BP 122/68; PULSE 70; RESP 17; O2SAT 97
== END 2021-08-24 02:16 | disposition home or self-care (01) ==
PROVIDERS: Emergency Provider Emergency Medicine; Visit Provider Emergency Medicine
DX: J20.9 Acute bronchitis, unspecified (principal); F17.210 Nicotine dependence, cigarettes, uncomplicated
CPT/HCPCS: 71045; 80053; 81001; 85025; 87428; 99283; A4216

== ENCOUNTER 2021-11-15 21:16 | Emergency (ER) | payer BC, MEDICAID, SELFPAY ==
[2021-11-15 21:16] VITALS: BP 123/79; PULSE 55; RESP 15; TEMP 36.1; O2SAT 96; BMI 29.6
--- NOTE | 2021-11-15 21:30 | RAD_ITS ---
STUDY: X-RAY CHEST REASON FOR EXAM: Female, 55 years old. CHEST PAIN SOB TECHNIQUE: XR Chest 1 View COMPARISON: 08/24/2021 FINDINGS: There is no demonstrated pleural abnormality. Normal size heart. Normal mediastinum and refugio. Normal visualized pulmonary arteries. Normal visualized aortic arch and descending thoracic aorta. Normal visualized thoracic spine. Normal visualized ribs, clavicles, and shoulders. There is no demonstrated abnormality of the visualized soft tissue structures of the upper abdomen. RAD/Chest 1 View (Portable) IMPRESSION: There are no acute findings. Electronically Signed: Niels Augustin MD at 21:48 EDT ,
--- NOTE | 2021-11-15 22:34 | EX.ED.DYSGE1 ---
HPI History of Present Illness Chief Complaint: General Illness Narrative Narrative: Patient is 55-year-old female with past medical history of smoking. She states she has had approximately 3 days of generalized fatigue with mild congestion and cough. She states she was recently exposed to her brother who tested positive for COVID and ended up hospitalized secondary to it. She states she is concerned that she has developed COVID based on her constellation of symptoms and with this comes in for evaluation [facility] Medical History Smoker Home Medications benzonatate 100 mg capsule 100 mg PO TID PRN cough #20 caps 08/24/21 [Rx Last Taken Unknown] prednisone 20 mg tablet 20 mg PO DAILY 5 days #5 tabs 11/15/21 [Rx Last Taken Unknown] Allergy/AdvReac Type Severity Reaction Status Date / Time No Known Allergies Allergy Verified 08/24/21 00:42 Surgical History History of cholecystectomy Social History Smoking Status: Current every day smoker tobacco type: cigarettes substance use type: does not use ROS ROS ED Constitutional Constitutional ED: Denies chills or fever(s) ENT ENT ED: Reports rhinorrhea; Denies sore throat Cardiovascular Cardiovascular: Denies chest pain Respiratory/Chest Respiratory/Chest: Reports cough; Denies dyspnea Gastrointestinal Gastrointestinal: Reports nausea; Denies abdominal pain, diarrhea or vomiting Genitourinary Genitourinary ED: Denies dysuria Musculoskeletal Musculoskeletal: Reports myalgias Integumentary Denies rash Neurologic Neurologic: Reports weakness; Denies headache(s) Hematologic/Lymphatic Hematologic/Lymphatic: Denies easy bleeding or easy bruising EXAM Physical Exam Const Vital Signs: 11/15/21 21:16 11/15/21 21:26 Temperature 97.0 F L Temperature Source Temporal Pulse Rate 55 L Respiratory Rate 15 Respiratory Effort Normal Non-Labored Respiratory Pattern Normal Blood Pressure 123/79 H Blood Pressure Mean 93 Pulse Ox 96 Oxygen Delivery Method Room Air Positive well nourished and well developed General Appearance ED: well developed HEENT Reports moist mucous membranes HEENT Narrative: Nasal mucosa is hyperemic and boggy with enlarged inferior nasal turbinate. There is cobblestoning the posterior pharynx consistent with sinus drainage but no airway edema or compromise. Eyes PERRL and EOMs intact bilaterally Neck supple and no JVD Neck Narrative: Positive anterior cervical adenopathy noted Resp normal respiratory effort Resp Narrative: There is mild wheezing in the lower lobes bilaterally consistent with history of smoking but otherwise no signs of respiratory distress Cardio regular rate and regular rhythm GI normal to inspection, nondistended, normoactive bowel sounds, non-tender and non-distended Auscultation: normoactive bowel sounds Palpation: soft Extremity normal to inspection Neuro oriented x3 and CN's II-XII intact bilaterally Sensorium / Orientation: alert Psych mental status grossly normal Skin no rashes or lesions noted MDM MDM MDM Narrative Medical decision making narrative: Patient presented to the ER in no acute respiratory distress. Her constellation of symptoms is concerning for COVID so a viral swab and chest x-ray were ordered. Chest x-ray revealed no obvious infiltrate and COVID test was negative indicating patient has some other type of viral infection. However at this time as she is not showing any signs of respiratory distress or hypoxia there is no need for further work-up and patient is otherwise safe for discharge Radiography Diagnostic Testing: Clinical Impression(s) from Imaging Studies Chest X-Ray 11/15/21 21:30 IMPRESSION: There are no acute findings. Electronically Signed: Niels Augustin MD at 21:48 EDT Reading Location ID and State: [facility] / [place] , Service support , Chest x-ray as interpreted by the emergency medicine physician reveals no obvious infiltrate pneumothorax or pleural effusion Discharge Plan Triage Chief Complaint: General Illness ED Provider: Luis Enrique Suarez Dx/Rx/DC Orders Clinical Impression: Viral illness, Tobacco abuse Instructions: ED Viral Syndrome (Adult) Prescriptions: New prednisone 20 mg tablet 20 mg PO DAILY 5 Days Qty: 5 0RF No Action benzonatate 100 mg capsule 100 mg PO TID PRN (Reason: cough) Qty: 20 0RF Stand Alone Forms: ED Work / School Excuse Primary Care Provider: Care Physician,No Primary Referrals: Fast,Akila, DO [Med Staff - Superintendent Job] - 1 Week if not improving Care Physician,No Primary [Primary Care Provider] - Disposition Disposition: Home, Self Care Discharge Date/Time: 11/15/21 22:42
== END 2021-11-15 22:42 | disposition home or self-care (01) ==
PROVIDERS: Emergency Provider Emergency Medicine; Visit Provider Emergency Medicine
DX: B34.9 Viral infection, unspecified (principal); Z20.822 Contact with and (suspected) exposure to COVID-19; F17.210 Nicotine dependence, cigarettes, uncomplicated
CPT/HCPCS: 71045; 87811; 99282

== ENCOUNTER 2022-01-11 22:48 | Emergency (ER) | payer BC, MEDICAID, SELFPAY ==
[2022-01-11 22:48] VITALS: BP 109/78; PULSE 85; RESP 15; TEMP 36.1; O2SAT 98; BMI 27.3
[2022-01-11 23:43] VITALS: BP 105/64; PULSE 67; RESP 18; O2SAT 95
--- NOTE | 2022-01-12 01:08 | RAD_ITS ---
STUDY: X-RAY CHEST REASON FOR EXAM: Female, 56 years old. cough TECHNIQUE: Single AP portable view of the chest. COMPARISON: None. FINDINGS: The lungs are clear and expanded. There is no demonstrated pleural abnormality. Normal size heart. Normal mediastinum and refugio. Normal visualized pulmonary arteries. Normal visualized aortic arch and descending thoracic aorta. There is a mild dextroscoliosis of the thoracic spine. Normal visualized ribs, clavicles, and shoulders. There is no demonstrated abnormality of the visualized soft tissue structures of the upper abdomen. RAD/Chest 1 View (Portable) IMPRESSION: No demonstrated acute cardiopulmonary process. Electronically Signed: Sheldon Alarcon MD at 1:38 EDT ,
[2022-01-12] MEDS: Orphenadrine 60 MG/2 ML Ampul IM (01:18)
[2022-01-12] MEDS: predniSONE 20 MG Tablet 60 MG PO (01:18)
[2022-01-12] MEDS: Ketorolac 30 MG/ML Syringe IM (01:19)
--- NOTE | 2022-01-12 02:04 | EDS_ITS ---
HPI History of Present Illness Chief Complaint: Other, Pain/Inj Narrative Narrative: Patient is a 56-year-old female with past medical history of smoking but denies any true diagnosis of COPD or need for supplemental oxygen. She states that over the last 1 to 2 days she has had subjective fevers and chills with increased nasal congestion and cough. She denies any known sick contacts but has concern for developing infection and secondary to this comes in for evaluation [facility] Medical History Smoker Home Medications benzonatate 100 mg capsule 100 mg PO TID PRN cough #20 caps 08/24/21 [Rx Last Taken Unknown] prednisone 20 mg tablet 20 mg PO DAILY 5 days #5 tabs 11/15/21 [Rx Last Taken Unknown] azelastine 137 mcg (0.1 %) nasal spray aerosol 2 spray intranasal BID #30 mL 01/12/22 [Rx Last Taken Unknown] prednisone 20 mg tablet 40 mg PO DAILY 5 days #10 tabs 01/12/22 [Rx Last Taken Unknown] promethazine 6.25 mg-codeine 10 mg/5 mL syrup 5 ml PO 4X/DAY PRN PRN cough 7 days #140 mL 01/12/22 [Rx Last Taken Unknown] Allergy/AdvReac Type Severity Reaction Status Date / Time No Known Allergies Allergy Verified 01/11/22 22:52 Surgical History History of cholecystectomy Social History Smoking Status: Current every day smoker tobacco type: cigarettes substance use type: does not use ROS ROS ED Constitutional Constitutional ED: Reports chills, fever(s) and subjective ENT ENT ED: Reports rhinorrhea and sore throat Cardiovascular Cardiovascular: Denies chest pain Respiratory/Chest Respiratory/Chest: Reports cough; Denies dyspnea Gastrointestinal Gastrointestinal: Denies abdominal pain, diarrhea, nausea or vomiting Genitourinary Genitourinary ED: Denies dysuria Musculoskeletal Musculoskeletal: Reports myalgias Integumentary Denies rash Neurologic Neurologic: Denies headache(s) Hematologic/Lymphatic Hematologic/Lymphatic: Denies easy bleeding or easy bruising EXAM Physical Exam Const Vital Signs: 01/11/22 22:48 01/11/22 23:10 01/11/22 23:43 Temperature 97.0 F L Temperature Source Temporal Pulse Rate 85 67 Respiratory Rate 15 18 Respiratory Effort Normal Blood Pressure 109/78 105/64 Blood Pressure Mean 88 77 Pulse Ox 98 95 Oxygen Delivery Method Room Air Room Air Positive well nourished and well developed General Appearance ED: well developed HEENT Reports moist mucous membranes HEENT Narrative: Bilateral TMs are retracted but show no secondary changes to suggest infection. Nasal mucosa is hyperemic and boggy with enlarged inferior nasal turbinate. There is cobblestoning the posterior pharynx consistent with sinus drainage but no airway edema or compromise. Eyes PERRL and EOMs intact bilaterally Neck supple and no JVD Neck Narrative: Positive anterior cervical lymphadenopathy noted Chest Wall palpation of chest normal Resp normal respiratory effort Resp Narrative: Breath sounds are diminished throughout with diffuse expiratory wheeze and rhonchi in the bilateral bases consistent with her smoking history but no signs of distress Cardio regular rate and regular rhythm GI normal to inspection, nondistended, normoactive bowel sounds, non-tender and non-distended Auscultation: normoactive bowel sounds Palpation: soft Extremity normal to inspection Neuro oriented x3, CN's II-XII intact bilaterally and no sensory deficits noted Sensorium / Orientation: alert Psych mental status grossly normal Skin no rashes or lesions noted MDM MDM MDM Narrative Medical decision making narrative: Patient presented with stable vitals and had no signs of respiratory distress. Her constellation of symptoms are most consistent with a viral infection with possible COVID a rapid test was obtained as well as chest x-ray. Rapid swab was negative and x-ray revealed no acute finding. On reevaluation she is resting comfortably and remains in no acute respiratory distress and therefore be placed on symptomatic care for her viral upper respiratory infection and is otherwise safe for discharge. Lab Data Attestation: I reviewed the patient's lab results. Radiography Diagnostic Testing: Clinical Impression(s) from Imaging Studies Chest X-Ray 01/12/22 01:08 IMPRESSION: No demonstrated acute cardiopulmonary process. Electronically Signed: Sheldon Alarcon MD at 1:38 EDT , Chest x-ray as interpreted by the emergency medicine physician reveals no acute infiltrate pneumothorax or pleural effusion Discharge Plan Triage Chief Complaint: Other, Pain/Inj ED Provider: Luis Enrique Suarez Dx/Rx/DC Orders Clinical Impression: Upper respiratory infection, viral, Tobacco abuse Instructions: ED URI, Viral, No Abx (Adult) Prescriptions: New prednisone 20 mg tablet 40 mg PO DAILY 5 Days Qty: 10 0RF azelastine 137 mcg (0.1 %) aerosol,spray 2 spray intranasal BID Qty: 30 0RF Rx Instructions: administer into each nostril promethazine-codeine 6.25-10 mg/5 mL syrup 5 ml PO 4X/DAY PRN PRN (Reason: cough) 7 Days Qty: 140 0RF No Action benzonatate 100 mg capsule 100 mg PO TID PRN (Reason: cough) Qty: 20 0RF prednisone 20 mg tablet 20 mg PO DAILY 5 Days Qty: 5 0RF Stand Alone Forms: ED Work / School Excuse Primary Care Provider: Care Physician,No Primary Referrals: Sylvain Quigley MD [Med Staff - [employer]] - 1 Week if not improving Care Physician,No Primary [Primary Care Provider] - Disposition Disposition: Home, Self Care
[2022-01-12 02:06] VITALS: BP 110/70; PULSE 62; RESP 15; O2SAT 94
== END 2022-01-12 02:33 | disposition home or self-care (01) ==
PROVIDERS: Emergency Provider Emergency Medicine; Visit Provider Emergency Medicine
DX: J06.9 Acute upper respiratory infection, unspecified (principal); F17.210 Nicotine dependence, cigarettes, uncomplicated
CPT/HCPCS: 71045; 87811; 96372; 99283

== ENCOUNTER 2022-08-17 00:27 | Emergency (ER) | payer MEDICAID, SELFPAY ==
[2022-08-17 00:28] VITALS: BP 110/80; PULSE 56; RESP 18; TEMP 36.6; O2SAT 98; BMI 32.3
--- NOTE | 2022-08-17 01:07 | RAD_ITS ---
EXAM: XR CHEST, 2 VIEWS CLINICAL INDICATION: cough TECHNIQUE: Frontal and lateral views of the chest. COMPARISON: Previous chest radiographs of 01/12/2022, 11/15/2021, and 08/24/2021. FINDINGS: LUNGS AND PLEURAL SPACES: Lungs are mildly hyperinflated with flattening of hemidiaphragms indicating pulmonary emphysema. No consolidation or edema. No pneumothorax. No effusion. HEART: Normal heart size. Mild pruning of the peripheral pulmonary vascular markings due to the pulmonary emphysema. MEDIASTINUM: Central airways and mediastinal contour are unremarkable. BONES/JOINTS: Mild thoracic degenerative spurring. Minimal compression deformity of the superior endplate of 2 of the lower thoracic vertebral bodies, chronic. SOFT TISSUES: Mild eventration of both hemidiaphragms. Cholecystectomy clips. RAD/Chest PA and Lateral IMPRESSION: Pulmonary emphysema. No acute pulmonary disease process identified. Electronically Signed: Juan Rousseau MD at 1:47 EDT ,
[2022-08-17] MEDS: Dicyclomine 10 MG Capsule 20 MG PO (01:15)
[2022-08-17] MEDS: predniSONE 20 MG Tablet 40 MG PO (01:15)
[2022-08-17] MEDS: Benzonatate 100 MG Capsule 200 MG PO (01:15)
[2022-08-17 02:01] VITALS: PULSE 87; RESP 16; O2SAT 97
--- NOTE | 2022-08-17 02:01 | EX.ED.DYSGE1 ---
HPI History of Present Illness Chief Complaint: General Illness Narrative Narrative: Patient is a 56-year-old female with past medical history of tobacco abuse. She states that multiple people at work have been sick and over the past 3 days she has had nasal congestion drainage cough along with abdominal pain and loose stool. She states she was on her way to work this evening when her symptoms seem to spike and prevented her from going to work. She states that symptoms are slightly improved at this point without treatment but she is concerned that they could repeat or relapse and secondary to this she presents for evaluation [facility] Medical History Acute sinusitis, unspecified Bronchitis Smoker Smoker Home Medications azelastine 137 mcg (0.1 %) nasal spray aerosol 2 spray intranasal BID #30 mL 08/17/22 [Rx Last Taken Unknown] dicyclomine 20 mg tablet 20 mg PO 4X/DAY PRN PRN Abdominal pain/spasm #28 tabs 08/17/22 [Rx Last Taken Unknown] hydrocodone-homatropine 5 mg-1.5 mg/5 mL (5 mL) oral syrup (Hycodan) 5 ml PO 4X/DAY PRN PRN cough 7 days #140 mL 08/17/22 [Rx Last Taken Unknown] prednisone 20 mg tablet 40 mg PO DAILY 5 days #10 tabs 08/17/22 [Rx Last Taken Unknown] Allergy/AdvReac Type Severity Reaction Status Date / Time No Known Allergies Allergy Verified 02/20/22 15:26 Surgical History History of cholecystectomy Social History (Updated 07/12/22 @ 08:01 by Dominique Velazquez) Smoking Status: Current every day smoker tobacco type: cigarettes substance use type: does not use ROS ROS ED Constitutional Constitutional ED: Denies chills or fever(s) ENT ENT ED: Reports rhinorrhea and sore throat Cardiovascular Cardiovascular: Denies chest pain Respiratory/Chest Respiratory/Chest: Reports cough; Denies dyspnea Gastrointestinal Gastrointestinal: Reports abdominal pain, diarrhea and nausea; Denies vomiting Genitourinary Genitourinary ED: Denies dysuria or hematuria Musculoskeletal Musculoskeletal: Reports myalgias Integumentary Denies rash Neurologic Neurologic: Denies headache(s) Hematologic/Lymphatic Hematologic/Lymphatic: Denies easy bleeding or easy bruising EXAM Physical Exam Const Vital Signs: 08/17/22 00:28 08/17/22 02:01 Temperature 97.9 F Temperature Source Temporal Pulse Rate 56 L 87 Respiratory Rate 18 16 Blood Pressure 110/80 Blood Pressure Mean 90 Pulse Ox 98 97 Oxygen Delivery Method Room Air Positive well nourished and well developed General Appearance ED: well developed HEENT Reports moist mucous membranes HEENT Narrative: Bilateral TMs are retracted but show no secondary changes to suggest infection Nasal mucosa is hyperemic and boggy with enlarged inferior nasal turbinates There is cobblestoning the posterior pharynx consistent with sinus drainage without airway edema or compromise Eyes PERRL and EOMs intact bilaterally General Eye ED: Negative for scleral icterus Neck supple and no JVD Chest Wall palpation of chest normal Resp normal respiratory effort Resp Narrative: Breath sounds are diminished throughout with diffuse rhonchi but no nasal flaring retractions tachypnea or accessory muscle use Cardio regular rate and regular rhythm GI non-distended GI Narrative: Abdomen is soft and nondistended with hyperactive bowel sounds. Mild diffuse pain on palpation without voluntary guarding or rigidity. No pulsatile mass or fluid wave. No hernia palpated Auscultation: hyperactive bowel sounds Palpation: soft Back/Spine no CVA tenderness Extremity normal to inspection Neuro oriented x3 and CN's II-XII intact bilaterally Sensorium / Orientation: alert Psych mental status grossly normal Skin no rashes or lesions noted General Skin Exam: Negative for jaundice MDM MDM MDM Narrative Medical decision making narrative: Patient presented to the ER in no acute respiratory distress and had a soft nonsurgical abdomen. Therefore I felt no need for emergent imaging studies. Patient's differential includes viral upper respiratory tract infection versus RSV versus influenza versus COVID versus COPD exacerbation or pneumonia. There is also concern with her abdominal discomfort patient could have colitis/diverticulitis. I discussed with patient the possibility of obtaining viral swabs as well as basic abdominal labs. Patient states she does not want these obtained but does have concern that she may have pneumonia so chest x-ray was ordered. Chest x-ray revealed no acute finding just chronic emphysema. By history and exam patient has a viral upper respiratory tract infection and therefore should be given symptomatic treatment for this. However as she has no signs of respiratory distress or need for supplemental oxygen there is no need for admission and she is otherwise safe for discharge History & Record Review Discussion w/independent historian: Patient and Significant other Radiography Diagnostic Testing: Clinical Impression(s) from Imaging Studies Chest X-Ray 08/17/22 01:07 IMPRESSION: Pulmonary emphysema. No acute pulmonary disease process identified. Electronically Signed: Juan Rousseau MD at 1:47 EDT , Chest x-ray as interpreted by the emergency medicine physician reveals pulmonary emphysema consistent with smoking history but no pneumothorax infiltrate or pleural effusion Discharge Plan Triage Chief Complaint: General Illness ED Provider: Luis Enrique Suarez Dx/Rx/DC Orders Clinical Impression: Acute upper respiratory infection, Smoker Instructions: ED URI, Viral, No Abx (Adult) Prescriptions: New prednisone 20 mg tablet 40 mg PO DAILY 5 Days Qty: 10 0RF azelastine 137 mcg (0.1 %) aerosol,spray 2 spray intranasal BID Qty: 30 0RF Rx Instructions: administer into each nostril dicyclomine 20 mg tablet 20 mg PO 4X/DAY PRN PRN (Reason: Abdominal pain/spasm) Qty: 28 0RF hydrocodone-homatropine [Hycodan] 5-1.5 mg/5 mL (5 mL) syrup 5 ml PO 4X/DAY PRN PRN (Reason: cough) 7 Days Qty: 140 0RF Stand Alone Forms: ED Work / School Excuse Primary Care Provider: Care Physician,No Primary Referrals: Care Physician,No Primary [Primary Care Provider] - Disposition Disposition: Home, Self Care Discharge Date/Time: 08/17/22 02:25
== END 2022-08-17 02:25 | disposition home or self-care (01) ==
PROVIDERS: Emergency Provider Emergency Medicine; Visit Provider Emergency Medicine
DX: J06.9 Acute upper respiratory infection, unspecified (principal); F17.210 Nicotine dependence, cigarettes, uncomplicated
CPT/HCPCS: 71046; 99283

== ENCOUNTER 2023-03-28 17:53 | Emergency (ER) | payer MEDICAID, SELFPAY ==
[2023-03-28 17:54] VITALS: BP 135/71; PULSE 76; RESP 14; TEMP 37.2; O2SAT 98; BMI 32.7
--- NOTE | 2023-03-28 18:17 | EDS_ITS ---
HPI History of Present Illness Chief Complaint: Cough Informant: patient Narrative Narrative: Patient presents with cough. Patient states she has been coughing for about 3 weeks. But just in the last for 5 days she developed muscle aches, subjective fevers, and green sputum production. She is denying chest pain. She denies hemoptysis. No leg pain or swelling. No history of DVT or PE. She denies asthma or COPD but states she has used inhalers when she has gotten sick and use prednisone which helps. She is a smoker, is still smoking, and was counseled on the importance of quitting. PFSH PFSH Medical History Acute sinusitis, unspecified Bronchitis Smoker Home Medications azelastine 137 mcg (0.1 %) nasal spray aerosol 2 spray intranasal BID #30 mL 08/17/22 [Rx Last Taken Unknown] dicyclomine 20 mg tablet 20 mg PO 4X/DAY PRN PRN Abdominal pain/spasm #28 tabs 08/17/22 [Rx Last Taken Unknown] hydrocodone-homatropine 5 mg-1.5 mg/5 mL (5 mL) oral syrup (Hycodan) 5 ml PO 4X/DAY PRN PRN cough 7 days #140 mL 08/17/22 [Rx Last Taken Unknown] prednisone 20 mg tablet 40 mg (2 x 20 mg) PO DAILY 5 days #10 tabs 08/17/22 [Rx Last Taken Unknown] albuterol sulfate 90 mcg/actuation aerosol inhaler (Ventolin HFA) 2 puff inhalation Q4H PRN PRN Wheezing ##1 03/28/23 [Rx Last Taken Unknown] doxycycline monohydrate 100 mg capsule 100 mg PO BID #20 CAPSULES 03/28/23 [Rx Last Taken Unknown] prednisone 20 mg tablet 60 mg (3 x 20 mg) PO DAILY #15 TABLETS 03/28/23 [Rx Last Taken Unknown] Allergy/AdvReac Type Severity Reaction Status Date / Time No Known Allergies Allergy Verified 03/28/23 17:54 Surgical History History of cholecystectomy Social History Smoking Status: Current every day smoker tobacco type: cigarettes substance use type: does not use ROS ROS ED ROS Narrative A complete review of systems was performed and is negative except as documented in the history of present illness. Some specific details below. Constitutional: Subjective fevers but none documented. EYE: No discharge, no color change. ENT: Mild nasal congestion initially but not as much now. No sore throat. No facial pain. CV: No palpitations or chest pain. Respiratory: See history of present illness. GI: No abdominal pain. No nausea vomiting diarrhea. No blood in stool. : No frequency dysuria or hematuria. Musculoskeletal: No recent trauma. No pains. No swelling. Skin: No rash. Nondiaphoretic. Neuro: No weakness or numbness. Endocrine: No polyuria or polydipsia. EXAM Physical Exam Narrative Exam Narrative: CONSTITUTIONAL: Patient is nontoxic in appearance. The patient looks comfortable. Work of breathing looks normal. She carries on normal conversation. HEENT: No notable trauma. Mucous membranes moist. No sinus tenderness. No indication of pain with swallowing. No exudate. EYES: No conjunctival injection. No icterus. NECK:No JVD. No stridor. CARDIOVASCULAR: Regular rate. Regular rhythm. No notable murmur. No JVD. RESPIRATORY: No respiratory distress. She does have harsh cough while I am in the room. She has diffuse expiratory wheezing. Few coarse breath sounds. No pain with a deep breath. GASTROINTESTINAL: Not distended. Bowel sounds are normal. No tenderness. GENITOURINARY: No tenderness over the bladder. No CVA tenderness. MUSCULOSKELETAL: Atraumatic. No peripheral edema. No cord. No tenderness along the deep venous system. No asymmetry. No distended veins. NEUROLOGICAL: Patient is alert and appropriate. No focal deficit noted. SKIN: No noted rashes. No diaphoresis. PSYCHIATRIC: Patient is calm. Mood is appropriate. Const Vital Signs: 03/28/23 17:54 03/28/23 18:11 03/28/23 18:41 Temperature 99 F Temperature Source Temporal Pulse Rate 76 68 Respiratory Rate 14 18 Respiratory Effort Normal Non-Labored Respiratory Depth Normal Respiratory Pattern Normal Blood Pressure 135/71 H Blood Pressure Mean 92 Pulse Ox 98 Oxygen Delivery Method Room Air Room Air MDM MDM MDM Narrative Medical decision making narrative: My independent interpretation of her two-view chest x-ray shows no acute process and final reading is similar. Patient is given breathing treatment helped a lot. She states she is breathing much better and feels more comfortable. Her wheezing is essentially gone. I think this patient actually has COPD. She is almost 58 years old. She has a long history of smoking. She has history of using prednisone and albuterol i ntermittently. I think since she has a change in the character and quantity of sputum she would benefit from adding doxycycline along with albuterol which she no longer has and a short course of steroids. We discussed reasons to return. Radiography Diagnostic Testing: Clinical Impression(s) from Imaging Studies Chest X-Ray 03/28/23 18:50 IMPRESSION: No acute cardiopulmonary pathology Electronically Signed: Kenton Jacinto MD at 19:15 EST Reading Location ID and State: [address] [place] [address] Tel , Service support , Discharge Plan Triage Chief Complaint: Cough ED Provider: John Cisse Dx/Rx/DC Orders Clinical Impression: Smoking addiction, COPD with acute exacerbation, Acute bronchospasm Instructions: ED COPD Flare Prescriptions: New prednisone 20 mg tablet 60 mg PO DAILY Qty: 15 0RF doxycycline monohydrate 100 mg capsule 100 mg PO BID Qty: 20 0RF albuterol sulfate [Ventolin HFA] 90 mcg/actuation HFA aerosol inhaler 2 puff inhalation Q4H PRN PRN (Reason: Wheezing) Qty: 1 0RF No Action prednisone 20 mg tablet 40 mg PO DAILY 5 Days Qty: 10 0RF azelastine 137 mcg (0.1 %) aerosol,spray 2 spray intranasal BID Qty: 30 0RF Rx Instructions: administer into each nostril dicyclomine 20 mg tablet 20 mg PO 4X/DAY PRN PRN (Reason: Abdominal pain/spasm) Qty: 28 0RF hydrocodone-homatropine [Hycodan] 5-1.5 mg/5 mL (5 mL) syrup 5 ml PO 4X/DAY PRN PRN (Reason: cough) 7 Days Qty: 140 0RF Primary Care Provider: Care Physician,No Primary Referrals: Shaquille Munoz MD [Med Staff - Active Staff] - 3-5 Days if not improving Care Physician,No Primary [Primary Care Provider] - Disposition Disposition: Home, Self Care
[2023-03-28] MEDS: Ipratropium/Albuterol Sulfate 3 ML AMPUL.NEB INHALATION (18:40)
[2023-03-28 18:41] VITALS: PULSE 68; RESP 18
[2023-03-28] MEDS: predniSONE 20 MG Tablet 60 MG PO (18:47)
--- NOTE | 2023-03-28 18:50 | RAD_ITS ---
STUDY: X-RAY CHEST REASON FOR EXAM: Female, 57 years old. cough TECHNIQUE: PA and lateral COMPARISON: 09/01/2022 FINDINGS: The lungs are clear and expanded. There is no demonstrated pleural abnormality. Normal size heart. Normal mediastinum and refugio. Normal visualized pulmonary arteries. Normal visualized aortic arch and descending thoracic aorta. Dorsal spine demonstrates degenerative changes. Normal visualized ribs, clavicles, and shoulders. There is no demonstrated abnormality of the visualized soft tissue structures of the upper abdomen No significant change since prior exam. RAD/Chest PA and Lateral IMPRESSION: No acute cardiopulmonary pathology Electronically Signed: Kenton Jacinto MD at 19:15 EST ,
[2023-03-28 20:21] VITALS: PULSE 78; RESP 16; O2SAT 95
== END 2023-03-28 20:22 | disposition home or self-care (01) ==
PROVIDERS: Emergency Provider Emergency Medicine; Visit Provider Emergency Medicine
DX: J44.1 Chronic obstructive pulmonary disease with (acute) exacerbation (principal); J98.01 Acute bronchospasm; F17.210 Nicotine dependence, cigarettes, uncomplicated
CPT/HCPCS: 71046; 87428; 94640; 99282

== ENCOUNTER 2023-11-06 14:43 | Emergency (ER) | payer SELFPAY ==
[2023-11-06 14:44] VITALS: BP 182/89; PULSE 86; RESP 15; TEMP 36.3; O2SAT 97; BMI 29.2
--- NOTE | 2023-11-06 15:06 | RAD_ITS ---
STUDY: X-RAY CHEST REASON FOR EXAM: Female, 57 years old. Right sided cp TECHNIQUE: PA and lateral views of the chest. COMPARISON: Comparison is made with prior study dated March 28, 2023. FINDINGS: Hyperinflation. Scattered calcified granulomas. No acute abnormality is seen. There is no demonstrated pleural abnormality. Normal size heart. Normal mediastinum and refugio. Normal visualized pulmonary arteries. Normal visualized aortic arch and descending thoracic aorta. There is demineralization of the osseous structures. Normal visualized ribs, clavicles, and shoulders. There is no demonstrated abnormality of the visualized soft tissue structures of the upper abdomen. RAD/Chest PA and Lateral IMPRESSION: Hyperinflation.. Electronically Signed: Omkar Chowdary MD at 15:28 EDT ,
--- NOTE | 2023-11-06 15:08 | ED.VIS.DYS ---
HPI History of Present Illness Chief Complaint: Flank Pain Detail of Chief Complaint: Right-sided rib cage and chest pain for about a week. Informant: patient Onset/Context/Timing Onset: Days Context: gradual Timing: Continuous Current Severity: Mild Maximum Severity: Mild Worsened by: Nothing Relieved by: Nothing Associated Symptoms cough Chest Pain: Positive for Continuous Narrative Narrative: 57-year-old female prior cholecystectomy 20 years ago. Says she has had right lateral rib cage pain for about a week. Denies any fall injury or trauma. No cardiac disease. No history of DVT or PE. Is not pleuritic. She denies any falls or trauma. No fever. Said the pain seems to be getting worse. It has not changed by movement, eating or drinking. She denies any chills. She is never had a pneumothorax or DVT or PE nor risk factors for DVT or PE. She does smoke a pack of cigarettes a day. PE Risk Factors: Negative for Cancer, OCP + Smoking + > 35, Prior DVT or PE, Recent immobilization, Recent surgery or Recent travel Prior similar symptoms: No Recent Illness/Hospitalization: No [facility] Medical History Bronchitis Smoker Acute sinusitis, unspecified Home Medications ?Medication ?Instructions ?Recorded ?Last Taken ?Type azelastine 137 mcg (0.1 %) nasal 2 spray intranasal BID #30 mL 08/17/22 Unknown Rx spray dicyclomine 20 mg tablet 20 mg PO 4X/DAY PRN PRN Abdominal 08/17/22 Unknown Rx pain/spasm #28 tabs hydrocodone-homatropine 5 mg-1.5 5 ml PO 4X/DAY PRN PRN cough 7 08/17/22 Unknown Rx mg/5 mL (5 mL) oral syrup (Hycodan) days #140 mL prednisone 20 mg tablet 40 mg (2 x 20 mg) PO DAILY 5 days 08/17/22 Unknown Rx #10 tabs albuterol sulfate 90 mcg/actuation 2 puff inhalation Q4H PRN PRN 03/28/23 Unknown Rx aerosol inhaler (Ventolin HFA) Wheezing ##1 doxycycline monohydrate 100 mg 100 mg PO BID #20 CAPSULES 03/28/23 Unknown Rx capsule prednisone 20 mg tablet 60 mg (3 x 20 mg) PO DAILY #15 03/28/23 Unknown Rx TABLETS prednisone 20 mg tablet 40 mg (2 x 20 mg) PO DAILY 7 days 11/06/23 Unknown Rx #14 tabs Allergy/AdvReac Type Severity Reaction Status Date / Time No Known Allergies Allergy Verified 11/06/23 14:45 Surgical History History of cholecystectomy Social History Smoking Status: Current every day smoker tobacco type: cigarettes substance use type: does not use ROS ROS ED ROS Narrative Rib cage chest pain for about week. Constitutional Constitutional ED: Denies chills or fever(s) Eyes Eyes: Denies blurry vision ENT ENT ED: Denies ear pain Cardiovascular Cardiovascular: Reports chest pain; Denies palpitations or racing heartbeat Respiratory/Chest Respiratory/Chest: Reports cough; Denies sputum Gastrointestinal Gastrointestinal: Denies abdominal pain, constipation, diarrhea or vomiting Genitourinary Genitourinary ED: Denies dysuria or hematuria Musculoskeletal Musculoskeletal: Denies arthralgias, back pain, myalgias or neck pain Integumentary Denies abscess or Abrasions Neurologic Neurologic: Denies headache(s) or paresthesias Psychiatric Psychiatric: Denies anxiety or depression Endocrine Endocrinology: Denies cold intolerance Hematologic/Lymphatic Hematologic/Lymphatic: Denies easy bleeding, easy bruising or lymphadenopathy Allergic/Immunologic Allergic/Immunologic ED: Denies mouth swelling, tongue swelling or urticaria EXAM Physical Exam Narrative Exam Narrative: 57-year-old female no acute distress. Vital signs stable afebrile. H EENT exam unremarkable. Neck nontender. Lungs expiratory wheezing bilaterally. Decreased breath sounds on the right. Heart regular rhythm rate about 85 no murmur. Chest wall mild tenderness anteriorly. No crepitance or subcu air appreciated. No signs of trauma. No bruising. No bony deformity. Abdomen is soft, nontender, nondistended normal bowel sounds all peritoneal signs. There is absolutely no right upper quadrant abdominal tenderness anywhere. To deep palpation. Back nontender. Moving all 4 extremities. Nontender no edema. Neurologically she is awake alert no focal motor deficits. Const Vital Signs: 11/06/23 14:44 11/06/23 15:34 Temperature 97.4 F L Temperature Source Temporal Pulse Rate 86 Respiratory Rate 15 Blood Pressure 182/89 H Blood Pressure Mean 120 Pulse Ox 97 97 Oxygen Delivery Method Room Air Room Air Positive well nourished and well developed; Negative for cachectic, contractures or unkempt General Appearance ED: well developed and NAD; Negative for unkempt, cachectic, contractures or pallor Nutritional Appearance: Negative for cachectic HEENT Reports moist mucous membranes; Denies dry mucous membranes atraumatic; Negative for trauma or tenderness Mouth ED: No dry mucous membranes Mouth: No dry mucous membranes Eyes EOMs intact bilaterally Neck no lymphadenopathy, supple, no meningeal signs and no JVD General: Negative for tenderness Resp normal respiratory effort and No clear to auscultation bilaterally Resp Narrative: Few scattered expiratory wheezes bilaterally. Diminished breath sounds on the right. Auscultation: wheezes Cardio regular rate, regular rhythm, S1 normal heart sound, S2 normal heart sound and no murmurs Rate: Negative for bradycardia or tachycardic Rhythm: Negative for abnormal rhythm GI non-tender, non-distended and no masses Inspection: Negative for other Auscultation: normoactive bowel sounds Palpation: soft; Negative for tender, guarding or rebound tenderness present Back/Spine no CVA tenderness and normal to inspection General Back: Negative for CVA tenderness, tenderness or other Extremity normal to inspection General Extremety ED: Negative for edema, tenderness or other findings General Extremity: Negative for edema or other findings Neuro oriented x3 and CN's II-XII intact bilaterally Sensorium / Orientation: alert, oriented to person, oriented to place and oriented to time; Negative for orientation impaired, confused or stuporous Motor Exam: strength 5/5 throughout Psych mental status grossly normal Appearance: Negative for unkempt Attitude: No agitated Mood & Affect: Negative for depressed, anxious or tearful Thought Process: normal thought process Skin no wounds General Skin Exam: Negative for jaundice or pallor Lesions: no lesions Rashes: no rashes Trauma: Negative for abrasion MDM MDM MDM Narrative Medical decision making narrative: 57-year-old female suspect underlying COPD from smoking history. She smokes a pack of cigarettes a day and has for years. Complaining of right leg rib cage and chest pain. No cardiac history. No DVT or PE history or risk factors. Has been no trauma. Her gallbladder was surgically removed 20 years ago and she has no abdominal pain. Chest x-ray being obtained. Repeat exam patient is doing well at 4:50 PM. We went over her test results. She will be discharged home. Treated as possible pleurisy. Prednisone 40 mg a day for the next week. First dose given in the ER. Patient is return if worse or follow-up if not improving. History & Record Review Discussion w/independent historian: Patient Additional record(s) reviewed:: Prior inpatient record, Prior outpatient record, Prior ED visit and Prior labs Lab Data Attestation: I reviewed the patient's lab results. Lab results narrative: CBC shows a white count of 5. H&H 13.42. Platelets 222. Electrolytes show gap 6. Normal BUN and creatinine. Glucose 111. Troponin 5. D-dimer is normal at 0.34. Labs: Laboratory Results - last 24 hr 11/06/23 15:25 WBC 5.6 RBC 4.85 Hgb 13.8 Hct 42.3 MCV 87.2 MCH 28.5 MCHC 32.6 RDW Std Deviation 42.5 RDW Coeff of Zara 13.4 Plt Count 222 MPV 10.8 Immature Gran % (Auto) 0.200 Neut % (Auto) 45.0 L Lymph % (Auto) 40.3 [place] % (Auto) 11.1 H Eos % (Auto) 2.7 Baso % (Auto) 0.7 Absolute Neuts (auto) 2.5 Absolute Lymphs (auto) 2.25 Nucleated RBC % 0 D-Dimer Quant (PE/DVT) 0.34 Sodium 140 Potassium 3.5 Chloride 108 H Carbon Dioxide 26.0 Anion Gap 6 BUN 16 Creatinine 0.85 Estim Creat Clear Calc 61.33 Est GFR (MDRD) Af Amer 88 Est GFR (MDRD) Non-Af 73 BUN/Creatinine Ratio 18.8 Glucose 111 H Calcium 9.3 Troponin I High Sens 5 Radiography Chest X-Ray - ED: 2 View, Read by ED Physician, Heart, Lungs, Mediastinum, Bony Structures, No Acute Disease and Chronic Changes Diagnostic Testing: Clinical Impression(s) from Imaging Studies Chest X-Ray 11/06/23 15:06 IMPRESSION: Hyperinflation.. Electronically Signed: Omkar Chowdary MD at 15:28 EDT , Chest x-ray, 2 views, AP and lateral, interpreted by myself shows no acute abnormality. No pneumonia. No pneumothorax. Normal cardiac silhouette. Normal lung sainz. Chronic changes. No obvious rib fracture. Discharge Plan Triage Chief Complaint: Flank Pain ED Provider: Shawn Mathias Dx/Rx/DC Orders Clinical Impression: Pleurisy Instructions: ED Pleurisy Prescriptions: New prednisone 20 mg tablet 40 mg PO DAILY 7 Days Qty: 14 0RF No Action prednisone 20 mg tablet 40 mg PO DAILY 5 Days Qty: 10 0RF azelastine 137 mcg (0.1 %) aerosol,spray 2 spray intranasal BID Qty: 30 0RF Rx Instructions: administer into each nostril dicyclomine 20 mg tablet 20 mg PO 4X/DAY PRN PRN (Reason: Abdominal pain/spasm) Qty: 28 0RF hydrocodone-homatropine [Hycodan] 5-1.5 mg/5 mL (5 mL) syrup 5 ml PO 4X/DAY PRN PRN (Reason: cough) 7 Days Qty: 140 0RF prednisone 20 mg tablet 60 mg PO DAILY Qty: 15 0RF doxycycline monohydrate 100 mg capsule 100 mg PO BID Qty: 20 0RF albuterol sulfate [Ventolin HFA] 90 mcg/actuation HFA aerosol inhaler 2 puff inhalation Q4H PRN PRN (Reason: Wheezing) Qty: 1 0RF Primary Care Provider: Care Physician,No Primary Referrals: Micky Guzman MD [Med Staff - [facility]] - As Needed Care Physician,No Primary [Primary Care Provider] - Activity Restrictions/Additional Instructions: Your labs, chest x-ray look normal. I think this is pleurisy or inflammation of your right lung lining. Prednisone 40 mg once a day start tomorrow for a week. If the pain goes away can stop it early. Can also use Tylenol for pain. Print Language: Italian Disposition Disposition: Home, Self Care
--- NOTE | 2023-11-06 15:21 | EKG12_ITS ---
Test Reason : SOB Blood Pressure : / mmHG Vent. Rate : 062 BPM Atrial Rate : 062 BPM P-R Int : 136 ms QRS Dur : 080 ms QT Int : 412 ms P-R-T Axes : 072 051 035 degrees QTc Int : 418 ms Normal sinus rhythm Normal ECG Confirmed by HUGO CRUMP, FERNANDO ([id number]), writer editor PALOMO GARCIA ([id number]) on 11/12/2023 1:38:37 PM Referred By: Confirmed By:BETINA ARIAS MD
[2023-11-06] MEDS: Ketorolac 30 MG/ML Syringe IV (15:31)
[2023-11-06 15:34] VITALS: O2SAT 97
[2023-11-06 15:36] LABS: Absolute Lymphocyte Count 2.25 X10^3/uL (0.83-4.51); Absolute Neutrophil Count 2.5 X10^3/uL (2.0-7.7); Basophil# 0.04 X10^3/uL; Basophil% 0.7 % (0-1); Eosinophil# 0.15 X10^3/uL; Eosinophils% 2.7 % (0-5); Hematocrit 42.3 % (37-47); Hemoglobin 13.8 g/dL (12.0-15.0); Lymphocyte # 2.25 X10^3/ul (0.83-4.51); Lymphocyte % 40.3 % (19-41); Mean Corp Hgb Conc 32.6 g/dL (32-36); Mean Corpuscular Hgb 28.5 pg (27.0-32.0); Mean Corpuscular Volume 87.2 fL (81-99); Mean Platelet Vol. 10.8 fl (6.2-12.0); Monocyte# 0.62 X10^3/uL; Monocyte% 11.1 % (0-10); NRBC Flagged by Analyzer 0 % (0-5); Neutrophil # 2.52 X10^3/uL (2.7-7.7); Platelet Count 222 K/mm3 (150-450); RBC Distribution Width CV 13.4 % (11.6-14.6); RBC Distribution Width SD 42.5 fl (35.1-43.9); Red Blood Count 4.85 M/mm3 (4.2-5.4); White Blood Count 5.6 K/mm3 (4.4-11.0)
[2023-11-06 15:52] LABS: Anion Gap 6 (5-15); BUN 16 mg/dL (7-18); BUN/Creat Ratio 18.8 RATIO (10-20); Calcium,Total 9.3 mg/dL (8.5-10.1); Chloride 108 mmol/L (98-107); Creatinine, Serum 0.85 mg/dL (0.55-1.02); EST Glomerular Filtration Rate 73 mL/min (>60); Est Glom Filt Rate - Afr Amer 88 mL/min (>60); Estimated Creatinine Clearance 61.33 ml/min; Glucose 111 mg/dL (74-106); Potassium 3.5 mmol/L (3.5-5.1); Sodium Level 140 mmol/L (136-145); Troponin-I HS 5 pg/mL (3.0-54.0)
[2023-11-06 16:09] LABS: D-Dimer Quantitative (DVT/PE) 0.34 FEU/ug/m (0.27-0.49)
[2023-11-06] MEDS: predniSONE 20 MG Tablet 60 MG PO (16:58)
== END 2023-11-06 17:02 | disposition home or self-care (01) ==
PROVIDERS: Emergency Provider Emergency Medicine; Visit Provider Emergency Medicine
DX: R09.1 Pleurisy (principal); F17.210 Nicotine dependence, cigarettes, uncomplicated
CPT/HCPCS: 71046; 80048; 84484; 85025; 85379; 93005; 96374; 99283; A4216